=== PATIENT | male | born 1945 | race Caucasian/White ===

== ENCOUNTER 2017-10-09 20:34 | Emergency (ER) | payer MEDICARE ==
--- OUTSIDE RECORDS SUMMARY | 2017-10-09 21:02 | XMS REPORT ---
:1945 External Reference #:[id number] Author Organization [facility] Address [address] [place] [address] Phone [phone] Care Team Providers Name Role Phone HCP/LW on file Primary Care Physician Unavailable Payers Type Date Identification Numbers Payment Provider Subscriber Medicare Primary Effective: Policy Number: [facility] Nancy Heathhamilton 02/13/2011 [id number] Services PayID: [id number] [address] [place] [address] Medigap Part B Effective: Policy Number: Aarp/Meherrin Nancy Sam Adriane 09/15/2012 [id number] Healthcare PayID: [id number] [address] [place] [address] Problems Date Description Provider Status Onset: 01/01/2016 H/O: pulmonary embolus Bertram Chinchilla D.O. Active Onset: 01/01/2016 Chronic diastolic heart failure Bertram Chinchilla D.O. Active Onset: 01/01/2016 Essential hypertension Bertram Chinchilla D.O. Active Onset: 01/01/2016 Iron deficiency anemia Bertram Chinchilla D.O. Active Onset: 01/01/2016 Inguinal hernia without obstruction AND Bertram Chinchilla D.O. Active without gangrene Onset: 06/03/2016 Anemia due to chronic blood loss Bertram Chinchilla D.O. Active Onset: 04/03/2017 Lymphedema Bertram Chinchilla D.O. 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 ETOH Use Rarely consumes alcohol Recreational Drug Use Denies Drug Use Daily Caffeine Consumes on average 2 cups of coffee per day Exercise Type/Frequency Exercises sporadically Seat Belt/Car Seat Seat Belt Use - Yes Currently Active Patient is currently sexually active Age [address] [place] 20 Years Old Allergies, Adverse Reactions, Alerts Date Description Reaction Status Severity Comments 01/01/2016 NKDA active Medications Medication Date Status Form Strength Qnty SIG Indications Ordering Provider Ondansetron Active Tablets 4mg 3tabs 1-2 by R11.2 Sopchak, 018 Dispers mouth Bertram, three D.O. times a day as needed for nausea Ondansetron Hx Tablets 4mg 30tabs 1 by mouth R11.2 Sopchak, HCL 018 - three Bertram, times a D.O. 018 day as needed for nausea Home Active 1units For I89.0 Sopchak, Compression 017 Chronic Bertram, Pump lymphedema D.O. . Use as directed nightly and when resting. Oxybutynin Active Tablets ER 10mg 30tabs 1 tablet Husseini, Chloride ER 017 24HR by mouth MD Armando daily Eucerin Active Cream 1362gm apply to I89.0 Sopchak, 017 body twice Bertram, a day D.O. Cartia XT Active Caps ER 240mg one po Unknown 017 24HR daily Furosemide Active Tablets 20mg 60tabs take one I10 Sopchak, 016 tablet by Bertram, mouth D.O. twice a day I89.0 Warfarin 06/17/2016 Active Tablets 1mg 400tabs Take 4+1/2 Z86.711 Sopchak, Sodium Tablets By Bertram, Mouth D.O. Every Day Or as Directed Warfarin 06/13/2016 Active Tablets 5mg 60tabs as Unknown Sodium directed, po daily Digoxin 06/13/2016 Active Tablets 125mc 90tabs Take One Sopchak, g Tablet By Bertram, Mouth D.O. Every Day Ferrous 12/25/2015 Active Tablets 325(6 90tabs Take One D50.9 Sopchak, Sulfate 5Fe) Tablet By Bertram, mg Mouth D.O. Every Morning With Oj Or Vitamin C. On Empty Stomach Metoprolol Active Tablets 50mg 2 by mouth I48.91 Unknown Tartrate twice a day T.E.D. 07/15/2017 - Hx [facility] [place] 3units please fit I89.0 Amor, Anti-Embolism 10/05/2017 to patient Bertram Stockings wear daily D.O. Thigh ok to Length/Large/ remove at Regular night Diltiazem HCL 06/21/2016 - Hx Caps ER 120mg 30caps take 1 I48.91 Silcoff, ER 04/03/2017 24HR capsule by anel Martinez M.DEllie every morning for heart rate control Metoprolol 06/21/2016 - Hx Tablets 50mg 90tabs take 1.5 I48.91 Silcoff, Tartrate 07/22/2016 tablets by anel Martinez M.DEllie twice a day for heart rate control and high blood pressure Diltiazem HCL 06/13/2016 - Hx Tablets 60mg one tab po I48.91 Unknown 06/21/2016 twice daily for heart rate control Metoprolol 06/13/2016 - Hx Tablets 50mg take 1 I48.91 Unknown Tartrate 06/21/2016 tablet twice a day for heart rate control and high blood pressure Cipro 06/03/2016 - Hx Tablets 500mg 14tabs 1 tab by T83.51xA [facility], 06/10/2016 mouth Bertram, twice a D.O. day Xarelto 04/01/2016 - Hx Tablets 20mg 90tabs 1 by mouth Z86.711 [facility], 06/13/2016 every day Keith Burden. Eliquis 03/26/2016 - Hx Tablets 5mg 180tabs 1 po [facility] Z86.711 [facility] a [facility]. Abiodun Burden.Brando. Pradaxa 03/23/2016 - Hx Capsules 150[facility]caps [facility] by Bertram, mouth 2 D.O. times per day for blood clot in a blood vessel of the lung Furosemide 12/25/2015 - Hx Tablets 40mg 30tabs 1 by mouth [facility]2016 daily Bertram, D.O. Losartan 12/25/2015 - Hx Tablets 25mg 90tabs 1 by mouth I10 Sopchak, Potassium 06/13/2016 daily Shea Burden Metoprolol 12/25/2015 - Hx Tablets ER 25mg 30tabs 1 by mouth I10 Sopmarycruzk, Succinate ER 06/13/2016 24HR daily Keith Burden. Xarelto 12/25/2015 - Hx Tablets 20mg 30tabs 1 by mouth Z86.711 Sopchak, 03/26/2016 daily Shea Burden Immunizations CPT Code Status Date Vaccine Lot # [id number] Given 07/15/2017 Influenza Virus Vaccine, Quadrivalent, Split, [id number] Preservative Free 50636 Given 07/22/2016 Influenza Virus Vaccine, Quadrivalent, Split, [id number] Preservative Free Vital Signs Date Vital Result Comment 10/06/2017 BP Systolic 156 mmHg BP Diastolic 60 mmHg Body Temperature 98.2 F Weight 220.00 lb w/shoes 07/15/2017 BP Systolic 140 mmHg BP Diastolic 60 mmHg Weight 223.00 lb w/shoes 04/11/2017 BP Systolic 136 mmHg BP Diastolic 64 mmHg Weight 223.00 lb 04/03/2017 BP Systolic 138 mmHg BP Diastolic 82 mmHg Height 66.5 inches 5'6.50" with sneakers Weight 226.00 lb with sneakers BMI (Body Mass Index) 35.9 kg/m2 07/22/2016 BP Systolic 108 mmHg BP Diastolic 70 mmHg Weight 205.00 lb 06/21/2016 BP Systolic 130 mmHg BP Diastolic 82 mmHg Heart Rate 112 /min irreg irreg (range 106-112, checked 3x) Respiratory Rate 14 /min not laboured Height 67 inches 5'7" with sneakers Weight 224.00 lb with sneakers BMI (Body Mass Index) 35.1 kg/m2 06/03/2016 BP Systolic 100 mmHg BP Diastolic 65 mmHg Body Temperature 98.8 F Weight 221.00 lb 03/22/2016 BP Systolic 144 mmHg BP Diastolic 80 mmHg Weight 216.00 lb 01/01/2016 BP Systolic 140 mmHg BP Diastolic 70 mmHg Height 66 inches 5'6" Weight 210.00 lb BMI (Body Mass Index) 33.9 kg/m2 Results Test Date Test Result H/L Range Note Inr/Protime 10/02/2017 Inr 2.50 High 0.77-1.02 Inr/Protime 09/01/2017 Inr 2.33 High 0.77-1.02 1 Istat BUN/Crea/Egfr/V Mainct 08/13/2017 Poc Bun Mainct 18 mg/dL 9- Poc Crea Mainct 0.6 mg/dL 0.6-0.9 GFR Non- MCT 132.8 >60 GFR Mainct 170.8 >60 2 Laboratory test finding 08/13/2017 Blood Urea Nitrogen BUN <pending> Creatinine <pending> Inr/Protime 08/04/2017 Inr 2.82 High 0.89-1.11 Inr/Protime 07/25/2017 Inr 3.15 High 0.89-1.11 Inr/Protime 06/26/2017 Inr 2.40 High 0.89-1.11 Inr/Protime 06/12/2017 Inr 1.94 High 0.89-1.11 Inr/Protime 05/27/2017 Inr 2.33 High 0.89-1.11 Inr/Protime 05/20/2017 Inr 3.12 High 0.89-1.11 Alkaline Phos Isoenzymes 05/20/2017 Alkaline Phosphatase 346 U/L 45 - 115 Alp Liver 1% 85.2 % 27.8-76.3 Alp Liver 1 294.8 IU/L 16.2-70.2 Alp Liver 2% 9.2 % 0.0-8.0 Alp Liver 2 31.8 IU/L 0.0-5.8 Alp Bone % 3.9 % 19.1-67.7 Alp Bone 13.5 IU/L 12.1-42.7 Alp Intestine % 1.7 % 0.0-20.6 Alp Intestine 5.9 IU/L 0.0-11.0 Alp Placental NotPresent 3 Comp Metabolic Panel 05/20/2017 Sodium 140 mmol/L 133-145 Potassium 4.3 mmol/L 3.5-5.0 Chloride 106 mmol/L 101-111 Co2 Carbon Dioxide 26 mmol/L 22-32 Anion Gap 8 mmol/L 2-11 Glucose 136 mg/dL High 70-100 Blood Urea Nitrogen 19 mg/dL 6-24 Creatinine 0.69 mg/dL 0.67-1.17 BUN/Creatinine Ratio 27.5 High 8-20 Calcium 9.0 mg/dL 8.6-10.3 Total Protein 6.9 g/dL 6.4-8.9 Albumin 3.9 g/dL 3.2-5.2 Globulin 3.0 g/dL 2-4 Albumin/Globulin Ratio 1.3 1-3 Total Bilirubin 0.60 mg/dL 0.2-1.0 Alkaline Phosphatase 329 U/L High 34-104 Alt 40 U/L 7-52 Ast 37 U/L 13-39 Egfr Non- 113.0 >60 Egfr 145.4 >60 4 Inr/Protime 04/21/2017 Inr 2.84 High 0.89-1.11 Basic Metabolic Panel 04/21/2017 Sodium 139 mmol/L 133-145 Potassium 4.2 mmol/L 3.5-5.0 Chloride 104 mmol/L 101-111 Co2 Carbon Dioxide 27 mmol/L 22-32 Anion Gap 8 mmol/L 2-11 Glucose 115 mg/dL High 70-100 Blood Urea Nitrogen 17 mg/dL 6-24 Creatinine 0.63 mg/dL Low 0.67-1.17 BUN/Creatinine Ratio 27.0 High 8-20 Calcium 9.1 mg/dL 8.6-10.3 Egfr Non- 125.5 >60 Egfr 161.5 >60 5 CBC Auto Diff 04/03/2017 White Blood Count 9.5 10^3/uL 3.5-10.8 Red Blood Count 5.49 10^6/uL High 4.0-5.4 Hemoglobin 12.7 g/dL Low 14.0-18.0 Hematocrit 40 % Low 42-52 Mean Corpuscular Volume 73 fL Low 80-94 6 Mean Corpuscular Hemoglobin 23 pg Low 27-31 Mean Corpuscular HGB Conc 32 g/dL 31-36 Red Cell Distribution Width 19 % High 10.5-15 Platelet Count 192 10^3/uL 150-450 Mean Platelet Volume 12 um3 High 7.4-10.4 Abs Neutrophils 7.5 10^3/uL 1.5-7.7 Abs Lymphocytes 0.9 10^3/uL Low 1.0-4.8 Abs Monocytes 0.8 10^3/uL 0-0.8 Abs Eosinophils 0.2 10^3/uL 0-0.6 Abs Basophils 0.1 10^3/uL 0-0.2 Abs Nucleated RBC 0 10^3/uL Granulocyte % 78.7 % 38-83 Lymphocyte % 9.6 % Low 25-47 Monocyte % 8.9 % 1-9 Eosinophil % 1.7 % 0-6 Basophil % 1.1 % 0-2 Nucleated Red Blood Cells % 0 Comp Metabolic Panel 04/03/2017 Sodium 141 mmol/L 133-145 Potassium 4.1 mmol/L 3.5-5.0 Chloride 106 mmol/L 101-111 Co2 Carbon Dioxide 25 mmol/L 22-32 Anion Gap 10 mmol/L 2-11 Glucose 129 mg/dL High 70-100 Blood Urea Nitrogen 16 mg/dL 6-24 Creatinine 0.65 mg/dL Low 0.67-1.17 BUN/Creatinine Ratio 24.6 High 8-20 Calcium 8.9 mg/dL 8.6-10.3 Total Protein 7.1 g/dL 6.4-8.9 Albumin 3.8 g/dL 3.2-5.2 Globulin 3.3 g/dL 2-4 Albumin/Globulin Ratio 1.2 1-3 Total Bilirubin 0.70 mg/dL 0.2-1.0 Alkaline Phosphatase 306 U/L High 34-104 Alt 36 U/L 7-52 Ast 29 U/L 13-39 Egfr Non- 121.1 >60 Egfr 155.7 >60 7 Laboratory test finding 04/03/2017 Ferritin 110.4 ng/mL 24-336 TSH (Thyroid Stim Horm) 3.46 mcIU/mL 0.34-5.60 Inr/Protime 03/24/2017 Inr 2.85 High 0.89-1.11 Inr/Protime 02/24/2017 Inr 2.07 High 0.89-1.11 Inr/Protime 01/27/2017 Inr 2.25 High 0.89-1.11 Inr/Protime 01/06/2017 Inr 2.07 High 0.89-1.11 Inr/Protime 12/30/2016 Inr 1.44 High 0.89-1.11 Inr/Protime 12/02/2016 Inr 2.48 High 0.89-1.11 Inr/Protime 11/25/2016 Inr 2.02 High 0.89-1.11 Inr/Protime 11/18/2016 Inr 1.85 High 0.89-1.11 Inr/Protime 11/11/2016 Inr 2.10 High 0.89-1.11 Inr/Protime 11/01/2016 Inr 2.20 High 0.89-1.11 Inr/Protime 10/21/2016 Inr 2.19 High 0.89-1.11 Inr/Protime 10/14/2016 Inr 2.06 High 0.89-1.11 Inr/Protime 10/07/2016 Inr 1.58 High 0.89-1.11 Laboratory test finding 09/25/2016 Inr/Protime 1.89 High 0.89-1.11 8, 9 Inr/Protime 09/11/2016 Inr 2.00 High 0.89-1.11 Inr/Protime 08/12/2016 Inr 2.07 High 0.89-1.11 Laboratory test finding 07/22/2016 Ferritin 92.4 ng/mL 24-336 10 Iron & Iron Binding 07/22/2016 Iron 42 g/dL Low 50-212 10 Capacity Unsaturated Iron Binding 308 g/dL 10 Total Iron Binding Capacity 350 g/dL 250-450 10 % Iron Saturation 12 % Low 15-55 10 CBC Auto Diff 07/22/2016 White Blood Count 8.1 10^3/uL 3.5-10.8 10 Red Blood Count 5.50 10^6/uL High 4.0-5.4 10 Hemoglobin 12.3 g/dL Low 14.0-18.0 10 Hematocrit 39 % Low 42-52 10 Mean Corpuscular Volume 71 fL Low 80-94 10, 11 Mean Corpuscular Hemoglobin 22 pg Low 27-31 10 Mean Corpuscular HGB Conc 32 g/dL 31-36 10 Red Cell Distribution Width 19 % High 10.5-15 10 Platelet Count 254 10^3/uL 150-450 10 Mean Platelet Volume 11 um3 High 7.4-10.4 10 Abs Neutrophils 5.8 10^3/uL 1.5-7.7 10 Abs Lymphocytes 1.0 10^3/uL 1.0-4.8 10 Abs Monocytes 0.8 10^3/uL 0-0.8 10 Abs Eosinophils 0.4 10^3/uL 0-0.6 10 Abs Basophils 0.1 10^3/uL 0-0.2 10 Abs Nucleated RBC 0 10^3/uL 10 Granulocyte % 71.6 % 38-83 10 Lymphocyte % 12.0 % Low 25-47 10 Monocyte % 10.4 % High 1-9 10 Eosinophil % 4.6 % 0-6 10 Basophil % 1.4 % 0-2 10 Nucleated Red Blood Cells % 0 10 Inr/Protime 07/22/2016 Inr 2.74 High 0.89-1.11 10 Protime W/ Inr(Add 07/17/2016 #International 2.7 V58.61) Normalized Protime W/ Inr(Add 07/03/2016 #International 4.2 V58.61) Normalized Protime W/ Inr(Add 07/03/2016 #International 4.4 V58.61) Normalized Protime W/ Inr(Add 06/24/2016 #International 3.9 V58.61) Normalized Inr/Protime 06/17/2016 Inr 1.83 High 0.89-1.11 CBC Auto Diff 06/05/2016 White Blood Count 11.7 10^3/uL High 3.5-10.8 Red Blood Count 4.92 10^6/uL 4.0-5.4 Hemoglobin 11.0 g/dL Low 14.0-18.0 Hematocrit 34 % Low 42-52 Mean Corpuscular Volume 70 fL Low 80-94 12 Mean Corpuscular Hemoglobin 22 pg Low 27-31 Mean Corpuscular HGB Conc 32 g/dL 31-36 Red Cell Distribution Width 17 % High 10.5-15 Platelet Count 449 10^3/uL 150-450 Mean Platelet Volume 10 um3 7.4-10.4 Abs Neutrophils 9.1 10^3/uL High 1.5-7.7 Abs Lymphocytes 1.3 10^3/uL 1.0-4.8 Abs Monocytes 1.1 10^3/uL High 0-0.8 Abs Eosinophils 0 10^3/uL 0-0.6 Abs Basophils 0.2 10^3/uL 0-0.2 Abs Nucleated RBC 0.04 10^3/uL Granulocyte % 77.9 % 38-83 Lymphocyte % 11.0 % Low 25-47 Monocyte % 9.5 % High 1-9 Eosinophil % 0.1 % 0-6 Basophil % 1.5 % 0-2 Nucleated Red Blood Cells % 0.3 Inr/Protime 06/05/2016 Inr 2.24 High 0.89-1.11 Laboratory test finding 06/05/2016 Partial Thrombo Time 31.3 seconds 26.0 -36.3 PTT B-Type Natriuretic Peptide BNP 382 pg/mL High 13 Lactic Acid 2.3 mmol/L High 0.5-2.0 14 Comp Metabolic Panel 06/05/2016 Sodium 130 mmol/L Low 133-145 Potassium 4.4 mmol/L 3.5-5.0 Chloride 101 mmol/L 101-111 Co2 Carbon Dioxide 16 mmol/L Low 22-32 Anion Gap 13 mmol/L High 2-11 Glucose 125 mg/dL High 70-100 Blood Urea Nitrogen 56 mg/dL High 6-24 Creatinine 1.61 mg/dL High 0.67-1.17 BUN/Creatinine Ratio 34.8 High 8-20 Calcium 8.9 mg/dL 8.6-10.3 Total Protein 7.0 g/dL 6.4-8.9 Albumin 3.6 g/dL 3.2-5.2 Globulin 3.4 g/dL 2-4 Albumin/Globulin Ratio 1.1 1-3 Total Bilirubin 0.70 mg/dL 0.2-1.0 Alkaline Phosphatase 193 U/L High 34-104 Alt 159 U/L High 7-52 Ast 167 U/L High 13-39 Egfr Non- 42.6 >60 Egfr 54.8 >60 15 Laboratory test finding 06/05/2016 Magnesium 2.1 mg/dL 1.9-2.7 Troponin-I (TnI) 0.02 ng/mL <0.03 16 TSH (Thyroid Stim Horm) 5.19 mcIU/mL 0.34-5.60 Urinalysis Profile 06/05/2016 Urine Color [place] Urine Appearance Cloudy Urine Specific [place] 1.019 1.010-1.030 Urine pH 5.0 5-9 Urine Urobilinogen Negative Negative Urine Ketones Negative Negative Urine Protein 2+(100 mg/dL) Negative Urine Leukocytes Trace Negative Urine Blood 2+ Negative Urine Nitrite Negative Negative Urine Bilirubin Negative Negative Urine Glucose Negative Negative Urine White Blood Cell 3+(>20/hpf) Absent Urine Red Blood Cell 3+(>10/hpf) Absent Urine Bacteria 1+ Absent Urine Squamous Epithelial Cell Present Absent Urine Hyaline Casts Present Absent Laboratory test 06/05/2016 Urine Culture And SEE RESULT 17 finding Sensitivities BELOW Laboratory test 06/04/2016 B-Type Natriuretic 106 pg/mL High 18 finding Peptide BNP Comp Metabolic Panel 06/04/2016 Sodium 134 mmol/L 133-145 Potassium 4.5 mmol/L 3.5-5.0 Chloride 101 mmol/L 101-111 Co2 Carbon Dioxide 22 mmol/L 22-32 Anion Gap 11 mmol/L 2-11 Glucose 111 mg/dL High 70-100 Blood Urea Nitrogen 44 mg/dL High 6-24 Creatinine 1.20 mg/dL High 0.67-1.17 BUN/Creatinine Ratio 36.7 High 8-20 Calcium 9.1 mg/dL 8.6-10.3 Total Protein 6.4 g/dL 6.4-8.9 Albumin 3.5 g/dL 3.2-5.2 Globulin 2.9 g/dL 2-4 Albumin/Globulin Ratio 1.2 1-3 Total Bilirubin 0.60 mg/dL 0.2-1.0 Alkaline Phosphatase 192 U/L High 34-104 Alt 43 U/L 7-52 Ast 33 U/L 13-39 Egfr Non- 59.9 >60 Egfr 77.0 >60 19 CBC Auto Diff 06/04/2016 White Blood Count 10.5 10^3/uL 3.5-10.8 Red Blood Count 4.68 10^6/uL 4.0-5.4 Hemoglobin 10.5 g/dL Low 14.0-18.0 Hematocrit 33 % Low 42-52 Mean Corpuscular Volume 71 fL Low 80-94 20 Mean Corpuscular Hemoglobin 23 pg Low 27-31 Mean Corpuscular HGB Conc 32 g/dL 31-36 Red Cell Distribution Width 17 % High 10.5-15 Platelet Count 413 10^3/uL 150-450 Mean Platelet Volume 10 um3 7.4-10.4 Abs Neutrophils 7.7 10^3/uL 1.5-7.7 Abs Lymphocytes 1.5 10^3/uL 1.0-4.8 Abs Monocytes 1.2 10^3/uL High 0-0.8 Abs Eosinophils 0.1 10^3/uL 0-0.6 Abs Basophils 0.1 10^3/uL 0-0.2 Abs Nucleated RBC 0.02 10^3/uL Granulocyte % 73.0 % 38-83 Lymphocyte % 14.0 % Low 25-47 Monocyte % 11.3 % High 1-9 Eosinophil % 0.6 % 0-6 Basophil % 1.1 % 0-2 Nucleated Red Blood Cells % 0.1 Culture Urine Inhouse 06/03/2016 Colonies 06/22 21 Urine Micro Inhouse 06/03/2016 Ua WBC 8-10 21 Ua RBC 15-20 21 Ua Casts - 21 Ua Epi 0-2 21 Ua Other sm amt sediment 21 Ua Glucose - 21 Ua Bilirubin + 21 Ua Ketones - 21 Ua Specific [place] 1.015 21 Ua Blood 3+ 21 Ua PH 6.0 21 Ua Protein 1+ 21 Ua Urobilinogen - 21 Ua Nitrite + 21 Ua Leukocytes 2+ 21 Laboratory test finding 04/22/2016 Ferritin 138.0 ng/mL 24-336 Iron (Fe) 29 g/dL Low 50-212 CBC Auto Diff 04/22/2016 White Blood Count 7.4 10^3/uL 3.5-10.8 Red Blood Count 4.89 10^6/uL 4.0-5.4 Hemoglobin 10.9 g/dL Low 14.0-18.0 Hematocrit 35 % Low 42-52 Mean Corpuscular Volume 71 fL Low 80-94 22 Mean Corpuscular Hemoglobin 22 pg Low 27-31 Mean Corpuscular HGB Conc 31 g/dL 31-36 Red Cell Distribution Width 17 % High 10.5-15 Platelet Count 196 10^3/uL 150-450 Mean Platelet Volume 11 um3 High 7.4-10.4 Abs Neutrophils 5.5 10^3/uL 1.5-7.7 Abs Lymphocytes 1.0 10^3/uL 1.0-4.8 Abs Monocytes 0.6 10^3/uL 0-0.8 Abs Eosinophils 0.2 10^3/uL 0-0.6 Abs Basophils 0.1 10^3/uL 0-0.2 Abs Nucleated RBC 0 10^3/uL Granulocyte % 74.3 % 38-83 Lymphocyte % 14.1 % Low 25-47 Monocyte % 8.4 % 1-9 Eosinophil % 2.3 % 0-6 Basophil % 0.9 % 0-2 Nucleated Red Blood Cells % 0 Iron & Iron Binding Capacity 03/11/2016 Iron 39 g/dL Low 50-212 Unsaturated Iron Binding 289 g/dL Total Iron Binding Capacity 328 g/dL 250-450 % Iron Saturation 12 % Low 15-55 Laboratory test finding 03/11/2016 Ferritin 141.8 ng/mL 24-336 CBC Auto Diff 03/11/2016 White Blood Count 7.9 10^3/uL 3.5-10.8 Red Blood Count 4.99 10^6/uL 4.0-5.4 Hemoglobin 11.4 g/dL Low 14.0-18.0 Hematocrit 36 % Low 42-52 Mean Corpuscular Volume 72 fL Low 80-94 23 Mean Corpuscular Hemoglobin 23 pg Low 27-31 Mean Corpuscular HGB Conc 32 g/dL 31-36 Red Cell Distribution Width 17 % High 10.5-15 Platelet Count 211 10^3/uL 150-450 Mean Platelet Volume 11 um3 High 7.4-10.4 Abs Neutrophils 5.5 10^3/uL 1.5-7.7 Abs Lymphocytes 1.4 10^3/uL 1.0-4.8 Abs Monocytes 0.7 10^3/uL 0-0.8 Abs Eosinophils 0.3 10^3/uL 0-0.6 Abs Basophils 0.1 10^3/uL 0-0.2 Abs Nucleated RBC 0.01 10^3/uL Granulocyte % 69.2 % 38-83 Lymphocyte % 17.4 % Low 25-47 Monocyte % 9.5 % High 1-9 Eosinophil % 3.2 % 0-6 Basophil % 0.7 % 0-2 Nucleated Red Blood Cells % 0.1 Laboratory test finding 02/11/2016 Urine Culture And SEE RESULT BELOW 24 Sensitivities Urinalysis Profile 02/11/2016 Urine Color Yellow Urine Appearance Clear Urine Specific [place] 1.020 1.010-1.030 Urine pH 5.0 5-9 Urine Urobilinogen Negative Negative Urine Ketones Negative Negative Urine Protein 1+(30 mg/dL) Negative Urine Leukocytes Trace Negative Urine Blood 2+ Negative * * Negative 25 Urine Nitrite Negative Negative Urine Bilirubin Negative Negative Urine Glucose Negative Negative Urine White Blood Cell 2+(11-20/hpf) Absent Urine Red Blood Cell 3+(>10/hpf) Absent Urine Bacteria Absent Absent CBC Auto Diff 01/01/2016 White Blood Count 9.6 10^3/uL 3.5-10.8 Red Blood Count 5.51 10^6/uL High 4.0-5.4 Hemoglobin 12.9 g/dL Low 14.0-18.0 Hematocrit 41 % Low 42-52 Mean Corpuscular Volume 74 fL Low 80-94 26 Mean Corpuscular Hemoglobin 23 pg Low 27-31 Mean Corpuscular HGB Conc 32 g/dL 31-36 Red Cell Distribution Width 16 % High 10.5-15 Platelet Count 211 10^3/uL 150-450 Mean Platelet Volume 11 um3 High 7.4-10.4 Abs Neutrophils 7.4 10^3/uL 1.5-7.7 Abs Lymphocytes 1.3 10^3/uL 1.0-4.8 Abs Monocytes 0.7 10^3/uL 0-0.8 Abs Eosinophils 0.2 10^3/uL 0-0.6 Abs Basophils 0.1 10^3/uL 0-0.2 Abs Nucleated RBC 0 10^3/uL Granulocyte % 76.6 % 38-83 Lymphocyte % 13.2 % Low 25-47 Monocyte % 7.4 % 1-9 Eosinophil % 2.0 % 0-6 Basophil % 0.8 % 0-2 Nucleated Red Blood Cells % 0.1 Iron & Iron Binding Capacity 01/01/2016 Iron 54 g/dL 50-212 Unsaturated Iron Binding 303 g/dL Total Iron Binding Capacity 357 g/dL 250-450 % Iron Saturation 15 % 15-55 Basic Metabolic Panel 01/01/2016 Sodium 137 mmol/L 133-145 Potassium 4.4 mmol/L 3.5-5.0 Chloride 100 mmol/L Low 101-111 Co2 Carbon Dioxide 28 mmol/L 22-32 Anion Gap 9 mmol/L 2-11 Glucose 75 mg/dL 70-100 Blood Urea Nitrogen 13 mg/dL 6-24 Creatinine 0.61 mg/dL Low 0.67-1.17 BUN/Creatinine Ratio 21.3 High 8-20 Calcium 9.3 mg/dL 8.6-10.3 Egfr Non- 131.1 >60 Egfr 168.6 >60 27 1 Please note the change in INR reference range effective 17. 2 Because ethnic data is not always readily available, this report includes an eGFR for both -Americans and non- Americans. The National Kidney Disease Education Program (NKDEP) does not endorse the use of the MDRD equation for patients that are not between the ages of 18 and 70, are , have extremes of body size, muscle mass, or nutritional status, or are non- or non-. According to the National Kidney Foundation, irrespective of diagnosis, the stage of the disease is based on the level of kidney function: Stage Description GFR(mL/min/1.73 m(2)) 1 Kidney damage with normal or decreased GFR 90 2 Kidney damage with mild decrease in GFR 60-89 3 Moderate decrease in GFR 30-59 4 Severe decrease in GFR 15-29 5 Kidney failure <15 (or dialysis) 3 REFERENCE VALUE Not present Test Performed by: [address] [address] 4 Because ethnic data is not always readily available, this report includes an eGFR for both -Americans and non- Americans. The National Kidney Disease Education Program (NKDEP) does not endorse the use of the MDRD equation for patients that are not between the ages of 18 and 70, are , have extremes of body size, muscle mass, or nutritional status, or are non- or non-. According to the National Kidney Foundation, irrespective of diagnosis, the stage of the disease is based on the level of kidney function: Stage Description GFR(mL/min/1.73 m(2)) 1 Kidney damage with normal or decreased GFR 90 2 Kidney damage with mild decrease in GFR 60-89 3 Moderate decrease in GFR 30-59 4 Severe decrease in GFR 15-29 5 Kidney failure <15 (or dialysis) 5 Because ethnic data is not always readily available, this report includes an eGFR for both -Americans and non- Americans. The National Kidney Disease Education Program (NKDEP) does not endorse the use of the MDRD equation for patients that are not between the ages of 18 and 70, are , have extremes of body size, muscle mass, or nutritional status, or are non- or non-. According to the National Kidney Foundation, irrespective of diagnosis, the stage of the disease is based on the level of kidney function: Stage Description GFR(mL/min/1.73 m(2)) 1 Kidney damage with normal or decreased GFR 90 2 Kidney damage with mild decrease in GFR 60-89 3 Moderate decrease in GFR 30-59 4 Severe decrease in GFR 15-29 5 Kidney failure <15 (or dialysis) 6 Consistent with previous results on 07/22/16. 7 Because ethnic data is not always readily available, this report includes an eGFR for both -Americans and non- Americans. The National Kidney Disease Education Program (NKDEP) does not endorse the use of the MDRD equation for patients that are not between the ages of 18 and 70, are , have extremes of body size, muscle mass, or nutritional status, or are non- or non-. According to the [employer], irrespective of diagnosis, the stage of the disease is based on the level of kidney function: Stage Description GFR(mL/min/1.73 m(2)) 1 Kidney damage with normal or decreased GFR 90 2 Kidney damage with mild decrease in GFR 60-89 3 Moderate decrease in GFR 30-59 4 Severe decrease in GFR 15-29 5 Kidney failure <15 (or dialysis) 8 CALL RESULTS TO [id number] 9 CALL RESULTS TO [id number] 10 INR taken care of in separate triage 11 Consistent with previous results on 06/06/16. 12 Consistent with previous results on 06/04/16. 13 >100 to <200 pg/mL: likely compensated congestive heart failure (CHF) 200 to 400 pg/mL: likely moderate CHF >400 pg/mL: likely moderate to severe CHF 14 Critical Result LACT:2.3 Called to [id number] at: 21:42:42 by:[id number] Read back by:[facility] Severe Sepsis and Septic Shock Management Bundle Measure requires all lactic acids initially measuring >2.0 mmol/L be repeated. 15 Because ethnic data is not always readily available, this report includes an eGFR for both -Americans and non- Americans. The National Kidney Disease Education Program (NKDEP) does not endorse the use of the MDRD equation for patients that are not between the ages of 18 and 70, are , have extremes of body size, muscle mass, or nutritional status, or are non- or non-. According to the National Kidney Foundation, irrespective of diagnosis, the stage of the disease is based on the level of kidney function: Stage Description GFR(mL/min/1.73 m(2)) 1 Kidney damage with normal or decreased GFR 90 2 Kidney damage with mild decrease in GFR 60-89 3 Moderate decrease in GFR 30-59 4 Severe decrease in GFR 15-29 5 Kidney failure <15 (or dialysis) 16 Reference Range and Interpretation: TnI (ng/mL) Interpretation Less Than 0.03 ng/mL Not supportive of diagnosis of SC 0.03 - 0.50 ng/mL Indeterminate: suggest serial studies if clinically indicated. Greater than 0.5 ng/mL Consistent with diagnosis of SC 17 SEE RESULT BELOW Name: NANCY FORREST : [address]: Delfina Briscoe MD Acct: [id number] Unit: [id number] AGE: 71 Location: ICU [id number] Re06/06/16 Dis: 06/06/16 SEX: M Status: DIS IN SPEC: [id number] NARCISA: 06/06/[address]: Ru Colby MD REQ: [id number] RECD: 06/06/16 STATUS: COMP PIOTR : Bertram Chinchilla DO _ SOURCE: URINE SPDESC: ORDERED: Urine Culture Procedure Result Reported Site Urine Culture Final 06/07/16- 09 ML Mixed nichelle; possible contamination. Suggest resubmission. * ML - MAIN LAB (PSC1) . END OF REPORT * ML=Testing performed at Main Lab DEPARTMENT OF PATHOLOGY, [address] [place] [address] Luther Yeh M.D. Director [facility] # [id number] 18 >100 to <200 pg/mL: likely compensated congestive heart failure (CHF) 200 to 400 pg/mL: likely moderate CHF >400 pg/mL: likely moderate to severe CHF 19 Because ethnic data is not always readily available, this report includes an eGFR for both -Americans and non- Americans. The National Kidney Disease Education Program (NKDEP) does not endorse the use of the MDRD equation for patients that are not between the ages of 18 and 70, are , have extremes of body size, muscle mass, or nutritional status, or are non- or non-. According to the National Kidney Foundation, irrespective of diagnosis, the stage of the disease is based on the level of kidney function: Stage Description GFR(mL/min/1.73 m(2)) 1 Kidney damage with normal or decreased GFR 90 2 Kidney damage with mild decrease in GFR 60-89 3 Moderate decrease in GFR 30-59 4 Severe decrease in GFR 15-29 5 Kidney failure <15 (or dialysis) 20 Consistent with previous results on 04/22/16. 21 void, clear, dark yellow 22 Consistent with previous results on 03/11/16. 23 Consistent with previous results on 01/01/16. 24 SEE RESULT BELOW Name: NANCY FORREST : [address]: Julia Spence DO Acct: [id number] Unit: [id number] AGE: 70 Location: ED Re02/11/16 SEX: M Status: DEP ER SPEC: [id number] NARCISA: 02/11/16-[address] [facility] [address]: Julia Spence DO REQ: [id number] RECD: 02/11/16 STATUS: ILANA MUNSON DR: Bertram Chinchilla DO _ SOURCE: URINE SPDESC: ORDERED: Urine Culture Procedure Result Reported Site Urine Culture Final 02/12/16- 1200 ML No Growth (<1,000 CFU/mL) * ML - MAIN LAB (PSC1) . END OF REPORT * ML=Testing performed at Main Lab DEPARTMENT OF PATHOLOGY, [address] [place] [address] Luther Yeh M.D. Director [facility] # [id number] 25 *Ascorbic acid is present which may interfere with detection of blood. 26 Consistent with previous results on 09/03/15. 27 Because ethnic data is not always readily available, this report includes an eGFR for both -Americans and non- Americans. The National Kidney Disease Education Program (NKDEP) does not endorse the use of the MDRD equation for patients that are not between the ages of 18 and 70, are , have extremes of body size, muscle mass, or nutritional status, or are non- or non-. According to the National Kidney Foundation, irrespective of diagnosis, the stage of the disease is based on the level of kidney function: Stage Description GFR(mL/min/1.73 m(2)) 1 Kidney damage with normal or decreased GFR 90 2 Kidney damage with mild decrease in GFR 60-89 3 Moderate decrease in GFR 30-59 4 Severe decrease in GFR 15-29 5 Kidney failure <15 (or dialysis) Procedures Date CPT Code Description Status 10/02/2017 06661 Anticoagulant MGMT For Patient Taking Warfarin, Inc Completed Review & Intr 03/22/2016 37039 Electrocardiogram Complete Completed Encounters Type Date Location Provider CPT E/M Dx Office Visit 07/15/2017 4:30p Main Office Bertram Chinchilla D.O. 49327 I89.0 K40.90 Z86.711 D50.9 Z23 Z79.01 Office Visit 04/11/2017 11:00a Main Office Bertram Chinchilla D.O. 86325 D50.9 Z86.711 I89.0 K40.90 Office Visit 04/03/2017 9:15a Main Office Bertram Chinchilla D.O. 62106 D50.9 Z86.711 I89.0 K40.90 Office Visit 07/22/2016 1:45p Main Office Bertram Chinchilla D.O. 45984 D50.9 I31.3 Z86.711 Z23 Z41.8 Office Visit 06/21/2016 4:45p Main Office Juan Mitchell M.D. 50545 I31.3 J90 D50.9 I48.91 Office Visit 06/03/2016 5:00p Main Office Bertram Chinchilla D.O. 60920 I50.32 I10 T83.51xA D50.0 R33.8 Office Visit 03/22/2016 11:00a Main Office Bertram Chinchilla D.O. 18075 D50.9 I50.32 I10 Z86.711 K40.90 Office Visit 01/01/2016 2:00p Main Office Bertram Chinchilla D.O. 81341 Z86.711 I10 I50.32 D50.9 K40.90 Plan of Care Future Appointment(s):10/16/2017 3:45 pm - Bertram Chinchilla D.O. at Main [id number]/06/2017 - Bertram Chinchilla D.O.R19.7 Diarrhea, unspecifiedFollow up:If not improving in 4 days please contact the office.Z86.409 Personal history of pulmonary uyjypaowY20.0 Lymphedema, not elsewhere sbmdqlznviC11.2 Nausea with vomiting, unspecifiedNew Medication:Ondansetron 4 mgOndansetron HCL 4 mg
[2017-10-09 21:42] LABS: ABS Basophils 0.1 10^3/ul (0-0.2); ABS Eosinophils 0.1 10^3/ul (0-0.6); ABS Lymphocytes 0.7 10^3/ul (1.0-4.8); ABS Monocytes 1.3 10^3/ul (0-0.8); ABS Neutrophils 10.5 10^3/ul (1.5-7.7); ABS Nucleated RBC 0 10^3/ul; Eosinophil % 0.7 % (0-6); Hematocrit 37 % (42-52); Hemoglobin 11.8 g/dl (14.0-18.0); Lymphocyte % 5.8 % (25-47); Mean Corpuscular HGB Conc 32 g/dl (31-36); Mean Corpuscular Hemoglobin 22 pg (27-31); Mean Corpuscular Volume 70 fL (80-94); Mean Platelet Volume 10 um3 (7.4-10.4); Nucleated Red Blood Cells % 0.1; Platelet Count 351 10^3/ul (150-450); Red Blood Count 5.28 10^6/ul (4.0-5.4); Red Cell Distribution Width 19 % (10.5-15); White Blood Count 12.7 10^3/ul (3.5-10.8)
[2017-10-09 21:52] LABS: EGFR Non-African American 61.5 (>60)
[2017-10-10] MEDS: Ondansetron INJ* 2 MG/ML VIAL IV ONE ×2 (00:15→04:21)
[2017-10-10] MEDS ORDERED: Iohexol 300* (CONTRAST) 10 ML SDV IV ONE (01:39)
[2017-10-10 01:43] LABS: Urine Appearance Cloudy; Urine Blood 3+ (Negative); Urine Color Amber; Urine Ketones Trace (Negative); Urine Protein 2+(100 mg/dL) (Negative); Urine Specific Gravity 1.019 (1.010-1.030); Urine Urobilinogen Negative (Negative)
[2017-10-10] MEDS: cefTRIAXone(*) 1 GM in NS 0.9% 50 ML* 50 ML IVPB ONE (04:13)
[2017-10-10] MEDS ORDERED: Ondansetron INJ* 2 MG/ML VIAL ONE (04:19)
[2017-10-10 04:39] LABS: INR 5.03 (0.77-1.02)
[2017-10-10] MEDS ORDERED: Phytonadione INJ (Adult)* 10 MG in NS 0.9% 50 ML* 50 ML IV ONE (05:21)
--- NOTE | 2017-10-10 06:50 | ED ---
Matt Juarez Angela, scribed for Burton Zamora MD on 10/10/17 at 0007 . Abdominal Pain/Male - HPI Summary HPI Summary: This pt is a 72 y/o male presenting to [facility] c/o abd pain x1 week. He states having abd and lower back pain, and now has bloating. Pt additionally reports having had nausea, vomiting, and diarrhea. Pt notes he had diarrhea at the beginning of the onset of his abd pain, but has not had any in the last few days. Last time he had stool output was 1-2 days ago. He states he has not vomited since 2 nights ago. Denies fever, chest pain, SOB. PMHx: CHF, hernia (for years). Pt' saw his PCP (Dr. Chinchilla) 2 days ago and was given Zofran. He has seen a surgeon at [facility] to repair his hernia, but it was not repaired due to pt's heart condition. Pt was told it was too dangerous. - History of Current Complaint Chief Complaint: EDAbdPain Stated Complaint: N/V/D/INSOMNIA Time Seen by Provider: 10/09/17 23:56 Hx Obtained From: Patient Onset/Duration: Lasting Days, Still Present Timing: Lasting Days Severity Currently: None Pain Intensity: 0 Location: Diffuse Radiates: No Aggravating Factor(s): Nothing Alleviating Factor(s): Nothing Associated Signs And Symptoms: Positive: Nausea, Vomiting, Diarrhea. Negative: Fever, Other - chest pain, SOB - Allergies/Home Medications Allergies/Adverse Reactions: Allergies Allergy/AdvReac Type Severity Reaction Status Date / Time No Known Allergies Allergy Verified 10/09/17 23:49 PMH/Surg Hx/FS Hx/Imm Hx Endocrine/Hematology History: Denies: Hx Diabetes, Hx Thyroid Disease Cardiovascular History: Reports: Hx Congestive Heart Failure - recent hospitalization, Hx Hypertension, Hx Valvular Heart Disease - PE, Other Cardiovascular Problems/Disorders - a fib, pericardial effusion 06/06/16 admission Denies: Hx Peripheral Vascular Disease Respiratory History: Reports: Hx Pleural Effusion, Hx Pulmonary Embolism GI History: Reports: Hx Cirrhosis, Other GI Disorders - inguinal hernia History: Reports: Other Problems/Disorders - UTI 05/28/16 Salazar inserted Musculoskeletal History: Denies: Hx Arthritis, Hx Osteoporosis Sensory History: Reports: Hx Contacts or Glasses Opthamlomology History: Reports: Hx Contacts or Glasses Neurological History: Reports: Other Neuro Impairments/Disorders - dizziness 1010 admission Denies: Hx Headaches, Hx Seizures, Hx Transient Ischemic Attacks (TIA) - Cancer History Cancer Type, Location and Year: questionable hepatic mass - Surgical History Surgery Procedure, Year, and Place: Cardiac Ablation 08/17/15. Tonsillectomy - Immunization History Date of Tetanus Vaccine: unk Date of Influenza Vaccine: 2016 Infectious Disease History: No Infectious Disease History: Denies: Traveled Outside the [place] in Last 30 Days - Family History Known Family History: Positive: Cardiac Disease - CHF - Social History Alcohol Use: Rare Substance Use Type: Reports: None Smoking Status (MU): Former Smoker Review of Systems Negative: Fever Negative: Chest Pain Negative: Shortness Of Breath Positive: Abdominal Pain, Vomiting, Diarrhea, Nausea Musculoskeletal: Other - lower back pain All Other Systems Reviewed And Are Negative: Yes Physical Exam - Summary Physical Exam Summary: Appearance: Well appearing, no pain distress Skin: warm, dry. Chronic stasis dermatitis. Head/face: normal Eyes: EOMI, CIERRA ENT: normal Neck: supple, non-tender Respiratory: CTA, breath sounds present Cardiovascular: RRR, pulses symmetrical. 2+ LE edema. Abdomen: non-tender, soft. Central distension. Massive inguinal hernia. Bowel: Increased bowel sounds, high pitched. : Heavy sediment in casts with blood tinged urine in salazar catheter. Musculoskeletal: strength/ROM intact. 2+ LE edema. Neuro: normal, sensory motor intact, A&Ox3 Triage Information Reviewed: Yes Vital Signs On Initial Exam: Initial Vitals Temp Pulse Resp BP Pulse Ox 98.8 F 94 16 172/73 99 10/09/17 20:35 10/09/17 20:35 10/09/17 20:35 10/09/17 20:35 10/09/17 20:35 Vital Signs Reviewed: Yes Diagnostics - Vital Signs Vital Signs Temp Pulse Resp BP Pulse Ox 10/09/17 23:53 73 95 10/09/17 23:51 151/64 10/09/17 22:47 82 16 169/72 97 10/09/17 20:35 98.8 F 94 16 172/73 99 - Laboratory Lab Results: Lab Results 10/09/17 10/09/17 10/09/17 Range/Units 21:25 21:25 21:25 WBC 12.7 H (3.5-10.8) 10^3/ul RBC 5.28 (4.0-5.4) 10^6/ul Hgb 11.8 L (14.0-18.0) g/dl Hct 37 L (42-52) % MCV 70 L (80-94) fL MCH 22 L (27-31) pg MCHC 32 (31-36) g/dl RDW 19 H (10.5-15) % Plt Count 351 (150-450) 10^3/ul MPV 10 (7.4-10.4) um3 Neut % (Auto) 83.0 (38-83) % Lymph % (Auto) 5.8 L (25-47) % Gibson % (Auto) 10.0 H (1-9) % Eos % (Auto) 0.7 (0-6) % Baso % (Auto) 0.5 (0-2) % Absolute Neuts (auto) 10.5 H (1.5-7.7) 10^3/ul Absolute Lymphs (auto) 0.7 L (1.0-4.8) 10^3/ul Absolute Monos (auto) 1.3 H (0-0.8) 10^3/ul Absolute Eos (auto) 0.1 (0-0.6) 10^3/ul Absolute Basos (auto) 0.1 (0-0.2) 10^3/ul Absolute Nucleated RBC 0 10^3/ul Nucleated RBC % 0.1 Sodium 136 (133-145) mmol/L Potassium 4.3 (3.5-5.0) mmol/L Chloride 101 (101-111) mmol/L Carbon Dioxide 24 (22-32) mmol/L Anion Gap 11 (2-11) mmol/L BUN 34 H (6-24) mg/dL Creatinine 1.17 (0.67-1.17) mg/dL Est GFR ( Amer) 79.0 (>60) Est GFR (Non-Af Amer) 61.5 (>60) BUN/Creatinine Ratio 29.1 H (8-20) Glucose 120 H (70-100) mg/dL Lactic Acid 1.2 (0.5-2.0) mmol/L Calcium 9.2 (8.6-10.3) mg/dL Total Bilirubin 0.90 (0.2-1.0) mg/dL AST 26 (13-39) U/L ALT 28 (7-52) U/L Alkaline Phosphatase 235 H (34-104) U/L C-Reactive Protein 238.94 H (< 5.00) mg/L Total Protein 7.4 (6.4-8.9) g/dL Albumin 3.5 (3.2-5.2) g/dL Globulin 3.9 (2-4) g/dL Albumin/Globulin Ratio 0.9 L (1-3) Lipase 24 (11.0-82.0) U/L Result Diagrams: 10/09/17 21:25 10/09/17 21:25 Lab Statement: Any lab studies that have been ordered have been reviewed, and results considered in the medical decision making process. - CT Abdomen/Pelvis CT CT Interpretation: Positive (See Comments) - IMPRESSION: High-grade small bowel obstruction secondary to numerous right inguinal hernia. Increasing moderate amount of ascites but no abscess or free air. Identification of portal vein thrombosis, extending into the SMV, with multiple collateral vessels. Caudate and segment right hepatic lobe mass is highly suspicious for malignant neoplasm such as hepatoma. Possible second 2.5 cm lesion inferior tip of the right hepatic lobe. Tiny hypodensity right hepatic lobe is nonspecific but metastasis not excluded. Gallstones. Dr. Zamora has reviewed this radiology report. CT Interpretation Completed By: Radiologist Re-Evaluation - Re-Evaluation First Eval Re-Evaluation Time: 03:58 Comment: I reviewed the CT results with the pt. Pt reports portal vein thrombosis is not new. Pt is on warfarin partly for this. He has an upcoming appointment on 10/15/17 with GI. Abdominal Pain Fem Course/Dx - Course Course Of Treatment: Pt very complicated with extremely large ing hernia now with high grade obstruction. Pt reports portal vein thrombosis is not new, and it appears that there is collateral flow. What is also new is liver masses concerning for malignancy, likely hepatoma. Pt is on warfarin partly for the thrombosis. He has an upcoming appointment on 10/15/17 with GI. Pt has history of pulmonary embolism, pericardial effusion, afib for which he had ablation. All echocardiograms show normal heart function here recently. Called [facility] who was unable to accept pt. Then d/w our hospitalist and our surgeon. This pt' s case is extremely complicated and will require higher level of care, likely with surgical ICU. [facility] will accept pt. They want NG tube placed and INR reversed. Will place NG tube AFTER first unit of plasma due to bleeding concerns. - Diagnoses Provider Diagnoses: Small bowel obstruction, Inguinal hernia, Hepatoma, Portal vein thrombosis - Provider Notifications Discussed Care Of Patient With: [facility] Time Discussed With Above Provider: 04:00 Instructed by Provider To: Other - I discussed pt care with the [facility]. They report they don't have any beds to accept the pt. [04:08] I spoke with Dr. Rutherford, hospitalist, who recommends transfer. [04:50 I discussed case with hospitalist from the [facility]. He states the surgeon the pt saw is no longer there. [04:59] I spoke with Dr. Kong, surgeon, who reports the pt is not a surgical candidate here. He recommends to medically treat him. [05:16] I discussed the case with Dr. Dejesus , surgeon at [facility]. He wants the pt's INR reversed, an NG tube placed, and they will accept the pt for transfer. - Critical Care Time Critical Care Time: 75-104 min - 75 minutes - CCT is EXCLUSIVE of separately billable procedures. Includes several consults, reevals, review of all records and counseling of the patient. Discharge - Discharge Plan Condition: Good Disposition: TRANS HIGHER LVL OF CARE FAC Discharge Disposition Comment: [facility] Referrals: Bertram Chinchilla DO [Primary Care Provider] - The documentation as recorded by the Matt pimentel Angela accurately reflects the service I personally performed and the decisions made by me, Burton Zamora MD.
--- NOTE | 2017-10-10 07:59 | RAD ---
CLINICAL HISTORY: Nausea, vomiting, diarrhea, abdominal pain COMPARISON: August 13, 2017, November 03, 2015 TECHNIQUE: Multiple contiguous axial CT scans were obtained of the abdomen and pelvis after the administration of intravenous contrast. Coronal and sagittal multiplanar reformations are submitted for review. Oral contrast was administered. Delayed images were obtained through the abdomen and pelvis. FINDINGS: LUNG BASES: The lung bases are clear. LIVER: The liver is heterogeneous in attenuation. There is a simple cyst of the inferior margin of the right lobe of liver. Again noted is enlargement of the caudate lobe with hypoperfusion of the caudate lobe that resolves on delayed imaging. This is similar to the previous examination. There is nonfilling of the right left portal veins consistent with the history of thrombosis. There is relative enlargement of the hepatic arteries. The appearance is similar to the previous examination. BILE DUCTS: There is no intrahepatic or extrahepatic biliary dilatation. GALLBLADDER: Multiple gallstones are noted. There is no pericholecystic inflammatory change. PANCREAS: The pancreas is normal, without mass or ductal dilatation. SPLEEN: Normal in size and appearance. UPPER GI TRACT: Evaluation of the gastrointestinal tract is limited by incomplete gastric distention. The upper GI tract is unremarkable. SMALL BOWEL AND MESENTERY: There is diffuse distention mild dilatation of small bowel. The majority of the small bowel is noted within a right inguinal hernia. There is a transition point to relatively decompressed small bowel within the hernia sac, though oral contrast is noted distal to the transition point. COLON: There are multiple diverticula of the sigmoid colon. There is no pericolonic inflammatory change. ADRENALS: Normal bilaterally. KIDNEYS: The kidneys are normal in shape, size, contour, and axis. There is no hydronephrosis or nephrolithiasis. BLADDER: The bladder is collapsed rounded Serrano catheter. PELVIC ORGANS: The prostate gland is normal. The seminal vesicles are symmetric. AORTA: There is calcific atherosclerotic disease of the abdominal aorta and its branches, without aneurysmal dilatation IVC: Unremarkable LYMPH NODES: There are multiple shotty subcentimeter short axis lymph nodes in the retroperitoneum. There is no lymphadenopathy by size criteria. ABDOMINAL WALL: Again noted is a very large right inguinal hernia with the majority of the small bowel mesentery located within the scrotum. There is a small fat-containing left inguinal hernia. BONES AND SOFT TISSUES: There are mild diffuse degenerative changes. OTHER: There is a moderate amount of ascites, predominantly within the hernia sac. IMPRESSION: 1. THERE IS DISTENTION AND MILD DILATATION OF PROXIMAL LOOPS OF SMALL BOWEL WITH TRANSITION POINT TO DECOMPRESSED SMALL BOWEL WITHIN A LARGE VENTRAL HERNIA SAC. ORAL CONTRAST IS NOTED DISTAL TO THE TRANSITION POINT CONSISTENT WITH PARTIAL OR INTERMITTENT OBSTRUCTION. 2. AGAIN NOTED IS ENLARGEMENT OF HYPOPERFUSION OF THE CAUDATE LOBE NOT CLEARLY IDENTIFIABLE MASS, THOUGH AN INFILTRATIVE NEOPLASM MAY GIVE A SIMILAR APPEARANCE. THIS IS SIMILAR TO THE AUGUST 13, 2017 EXAMINATION. 3. AGAIN NOTED IS PORTAL VENOUS THROMBOSIS. 4. CHOLELITHIASIS. 5. NOTED ABOVE, THERE IS A VERY LARGE RIGHT INGUINAL HERNIA CONTAINING THE MAJORITY OF THE SMALL BOWEL AND MESENTERY. 6. THERE IS MODERATE AMOUNT OF ASCITES, PREDOMINANTLY WITHIN THE HERNIA SAC.
[2017-10-10] MEDS ORDERED: Ondansetron INJ* 2 MG/ML VIAL IV ONE (08:21)
[2017-10-10 09:51] VITALS: BP 163/55
--- NOTE | 2017-10-13 09:20 | ED ---
Progress - Progress Note Progress Note: Patient's final urine cultures reveals 75- 100,000 Klebsiella pneumonia, 75-100, 000 Serratia marcescens. Final sensitivities are available as well. Patient was transferred to [facility]. Will forward results. Leo Araujo, aware. Re-Evaluation - Re-Evaluation First Eval Re-Evaluation Time: 03:58 Comment: I reviewed the CT results with the pt. Pt reports portal vein thrombosis is not new. Pt is on warfarin partly for this. He has an upcoming appointment on 10/15/17 with GI. Course/Dx - Course Course Of Treatment: Pt very complicated with extremely large ing hernia now with high grade obstruction. Pt reports portal vein thrombosis is not new, and it appears that there is collateral flow. What is also new is liver masses concerning for malignancy, likely hepatoma. Pt is on warfarin partly for the thrombosis. He has an upcoming appointment on 10/15/17 with GI. Pt has history of pulmonary embolism, pericardial effusion, afib for which he had ablation. All echocardiograms show normal heart function here recently. Called [facility] who was unable to accept pt. Then d/w our hospitalist and our surgeon. This pt' s case is extremely complicated and will require higher level of care, likely with surgical ICU. [facility] will accept pt. They want NG tube placed and INR reversed. Will place NG tube AFTER first unit of plasma due to bleeding concerns. - Diagnoses Provider Diagnoses: Small bowel obstruction, Inguinal hernia, Hepatoma, Portal vein thrombosis - Provider Notifications Time Discussed With Above Provider: 04:00 Instructed by Provider To: Other - I discussed pt care with the [facility] transfer center. They report they don't have any beds to accept the pt. [04:08] I spoke with Dr. Rutherford, hospitalist, who recommends transfer. [04:50 I discussed case with hospitalist from the [facility]. He states the surgeon the pt saw is no longer there. [04:59] I spoke with Dr. Kong, surgeon, who reports the pt is not a surgical candidate here. He recommends to medically treat him. [05:16] I discussed the case with Dr. Dejesus , surgeon at [facility]. He wants the pt's INR reversed, an NG tube placed, and they will accept the pt for transfer. - Critical Care Time Critical Care Time: 75-104 min - 75 minutes - CCT is EXCLUSIVE of separately billable procedures. Includes several consults, reevals, review of all records and counseling of the patient.
== END 2017-10-10 09:47 | disposition short-term general hospital (02) ==
LOC: ED 20:34
DX: K56.609 Unspecified intestinal obstruction, unspecified as to partial versus complete obstruction (principal); K40.90 Unilateral inguinal hernia, without obstruction or gangrene, not specified as recurrent; C22.0 Liver cell carcinoma; I81 Portal vein thrombosis; R11.2 Nausea with vomiting, unspecified; R19.7 Diarrhea, unspecified; R07.9 Chest pain, unspecified; R06.02 Shortness of breath; Z87.891 Personal history of nicotine dependence; R10.9 Unspecified abdominal pain
CPT/HCPCS: 36415; 36430; 74177; 80053; 81003; 81015; 83605; 83690; 85025; 85610; 86140; 86900; 86901; 86927; 87077; 87086; 87186; 96365; 96375; 99284; J0696; J2405; J3430; P9017; Q9967

== ENCOUNTER 2017-10-22 02:16 | Inpatient (IN) | payer MEDICARE ==
[2017-10-22 04:44] LABS: ABS Basophils 0.1 10^3/ul (0-0.2); ABS Eosinophils 0.1 10^3/ul (0-0.6); ABS Lymphocytes 0.6 10^3/ul (1.0-4.8); ABS Monocytes 1.1 10^3/ul (0-0.8); ABS Neutrophils 14.7 10^3/ul (1.5-7.7); ABS Nucleated RBC 0 10^3/ul; Eosinophil % 0.5 % (0-6); Hematocrit 31 % (42-52); Hemoglobin 10.1 g/dl (14.0-18.0); Lymphocyte % 3.9 % (25-47); Mean Corpuscular HGB Conc 32 g/dl (31-36); Mean Corpuscular Hemoglobin 22 pg (27-31); Mean Corpuscular Volume 69 fL (80-94); Mean Platelet Volume 10 um3 (7.4-10.4); Nucleated Red Blood Cells % 0.1; Platelet Count 394 10^3/ul (150-450); Red Blood Count 4.57 10^6/ul (4.0-5.4); Red Cell Distribution Width 19 % (10.5-15); White Blood Count 16.6 10^3/ul (3.5-10.8)
[2017-10-22 04:49] LABS: INR 1.46 (0.77-1.02)
[2017-10-22 04:52] LABS: EGFR Non-African American 111.2 (>60)
[2017-10-22 06:26] LABS: Urine Appearance Cloudy; Urine Blood 3+ (Negative); Urine Color Yellow; Urine Ketones 1+ (Negative); Urine Protein 1+(30 mg/dL) (Negative); Urine Specific Gravity 1.006 (1.010-1.030); Urine Urobilinogen Negative (Negative)
[2017-10-22] MEDS ORDERED: Piperacillin/Tazobac ADVAN(*) 3.375 GM in NS 0.9% 100 ML* 100 ML IVPB ONE (06:32)
--- NOTE | 2017-10-22 07:00 | ED ---
Igor Juarez Gabriel, scribed for Bolivar Ugalde MD on 10/22/17 at 0259 . Complex/Multi-Sys Presentation - HPI Summary HPI Summary: This patient is a 72 year old M BIBA to [facility] with a chief complaint of weakness after being discharged from [facility]. Pt was in medical center for a week and was discharged at 2100 yesterday for a bowel obstruction due to an inguinal hernia. No surgery was done they were able to put the hernia back naturally stopping the obstruction allowing him to have BMs. Originally the pt went to [facility] but was transfer due to a clot in his liver he was taking Coumadin until they discovered bleeding in his esophagus that was fixed with clips. Once the patient arrived home he was walking gup his front steps when he felt weak causing him to drop to his knees and he was unable to get up alone. The patient climbed up the stairs into the house while they waited for the ambulance. They tested his stool and found no blood or infection. Patient reports yellow colored stool and light headedness. Patient denies LOC, difficulty ambulating, ABD pain, and vomiting. - History Of Current Complaint Chief Complaint: EDWeakness Time Seen by Provider: 10/22/17 02:26 Hx Obtained From: Patient Onset/Duration: Lasting Hours, Still Present Timing: Constant Associated Signs And Symptoms: Positive: Weakness - Allergies/Home Medications Allergies/Adverse Reactions: Allergies Allergy/AdvReac Type Severity Reaction Status Date / Time No Known Allergies Allergy Verified 10/09/17 23:49 PMH/Surg Hx/FS Hx/Imm Hx Endocrine/Hematology History: Denies: Hx Diabetes, Hx Thyroid Disease Cardiovascular History: Reports: Hx Congestive Heart Failure - recent hospitalization, Hx Hypertension, Hx Valvular Heart Disease - PE, Other Cardiovascular Problems/Disorders - a fib, pericardial effusion 06/06/16 admission Denies: Hx Peripheral Vascular Disease Respiratory History: Reports: Hx Pleural Effusion, Hx Pulmonary Embolism GI History: Reports: Hx Cirrhosis, Other GI Disorders - inguinal hernia History: Reports: Other Problems/Disorders - UTI 05/28/16 Serrano inserted Denies: Hx Dialysis, Hx Renal Disease Musculoskeletal History: Denies: Hx Arthritis, Hx Osteoporosis Sensory History: Reports: Hx Contacts or Glasses Opthamlomology History: Reports: Hx Contacts or Glasses Neurological History: Reports: Other Neuro Impairments/Disorders - dizziness 1010 admission Denies: Hx Headaches, Hx Seizures, Hx Transient Ischemic Attacks (TIA) - Cancer History Cancer Type, Location and Year: questionable hepatic mass - Surgical History Surgery Procedure, Year, and Place: Cardiac Ablation 08/17/15. Tonsillectomy - Immunization History Date of Tetanus Vaccine: unk Date of Influenza Vaccine: 2016 Infectious Disease History: No Infectious Disease History: Denies: Traveled Outside the [place] in Last 30 Days - Family History Known Family History: Positive: Cardiac Disease - CHF - Social History Alcohol Use: Rare Substance Use Type: Reports: None Smoking Status (MU): Former Smoker Review of Systems Negative: Abdominal Pain, Vomiting Neurological: Negative - LOC , Other - light headedness Positive: Weakness All Other Systems Reviewed And Are Negative: Yes Physical Exam - Summary Physical Exam Summary: VITAL SIGNS: Reviewed. GENERAL: Patient is a well-developed and nourished male who is lying comfortable in the stretcher. Patient is not in any acute respiratory distress. HEAD AND FACE: No signs of trauma. No ecchymosis, hematomas or skull depressions. No sinus tenderness. EYES: PERRLA, EOMI x 2, No injected conjunctiva, no nystagmus. EARS: Hearing grossly intact. Ear canals and tympanic membranes are within normal limits. MOUTH: Oropharynx within normal limits. NECK: Supple, trachea is midline, no adenopathy, no JVD, no carotid bruit, no c- spine tenderness, neck with full ROM. CHEST: Symmetric, no tenderness at palpation LUNGS: Clear to auscultation bilaterally. No wheezing or crackles. CVS: Regular rate and rhythm, systolic murmur over the left sternal border ABDOMEN: Soft, non-tender. No signs of distention. No rebound no guarding. Bowel sounds are normal. Very large right inguinal hernia with induration with no tenderness, no change in hernia size according to the patient EXTREMITIES: FROM in all major joints, no edema, no cyanosis or clubbing. NEURO: Alert and oriented x 3. No acute neurological deficits. Speech is normal and follows commands. SKIN: Dry and warm Triage Information Reviewed: Yes Vital Signs On Initial Exam: Initial Vitals BP 152/56 10/22/17 02:22 Vital Signs Reviewed: Yes Diagnostics - Vital Signs Vital Signs Temp Pulse Resp BP Pulse Ox 10/22/17 02:30 86 18 144/57 98 10/22/17 02:29 97.5 F 86 18 153/67 98 10/22/17 02:23 86 18 98 10/22/17 02:22 152/56 - Laboratory Result Diagrams: 10/22/17 03:40 10/22/17 03:40 Lab Statement: Any lab studies that have been ordered have been reviewed, and results considered in the medical decision making process. - Radiology CXR Radiology Interpretation Completed By: ED Physician - no acute process - EKG 0327 Cardiac Rate: NL EKG Rhythm: Sinus Rhythm - at 85 BPM EKG Interpretation: non specific T wave changes in inferior Complex Multi-Symp Course/Dx Assessment/Plan: This patient is a 72 year old M BIBA to [facility] with a chief complaint of weakness after being discharged from [facility]. Pt was in [facility] for a week and was discharged at 2100 yesterday for a bowel obstruction due to an inguinal hernia. No surgery was done they were able to put the hernia back naturally stopping the obstruction allowing him to have BMs. Originally the pt went to [facility] but was transfer due to a clot in his liver he was taking Coumadin until they discovered bleeding in his esophagus that was fixed with clips. Once the patient arrived home he was walking gup his front steps when he felt weak causing him to drop to his knees and he was unable to get up alone. The patient climbed up the stairs into the house while they waited for the ambulance. They tested his stool and found no blood or infection. Patient reports yellow colored stool and light headedness. Patient denies LOC, difficulty ambulating, ABD pain, and vomiting. An EKG reveals sinus 85 bpm non specific T wave changes in inferior leads. CXR reveals no acute process. Test results with no significant abnormalities except for UA that is positive for UTI. Dx weakness, UTI, large inguinal hernia. We discussed patient care with Dr. Guidry and they have accepted the patient for admittance. Patient will be admitted. The patient is agreeable with this plan. - Diagnoses Provider Diagnoses: Weakness, UTI (urinary tract infection), Hernia, inguinal - Physician Notifications Discussed Care Of Patient With: Meghan Guidry Time Discussed With Above Provider: 06:42 Instructed by Provider To: Admit As Inpatient Discharge - Discharge Plan Condition: Fair Disposition: ADMITTED TO [facility] Referrals: Bertram Chinchilla DO [Primary Care Provider] - The documentation as recorded by the Igor pimentel Gabriel accurately reflects the service I personally performed and the decisions made by me, Bolivar Ugaled MD.
--- NOTE | 2017-10-22 07:55 | RAD ---
INDICATION: Weakness COMPARISON: None TECHNIQUE: An AP portable view obtained at 0352 hours is submitted. FINDINGS: Bones/Soft Tissues: There are no acute bony findings. Cardiomediastinal: The cardiomediastinal silhouette is normal. Lungs: There are no infiltrates. There is mild bibasilar hypoventilation Pleura: Minor blunting left costophrenic angle, unchanged. Other: None IMPRESSION: MINOR PLEURAL AND PERIPHERAL CHANGE LEFT LUNG BASE. NO ACUTE FINDINGS.
[2017-10-22] MEDS ORDERED: Al Hydrox/Mg Hydrox/Simet LIQ* 30 ML UDC PO PRN (08:49)
[2017-10-22] MEDS: Magnesium Oxide TAB* 400 MG PO SCH (11:18)
[2017-10-22] MEDS: cefTRIAXone VIAL(*) 1,000 MG in D5W 50 ML BAG* 50 ML IVPB SCH (11:21)
[2017-10-22] MEDS ORDERED: Dextrose 50% Syringe 50 ML* 25 GM/50 ML SYRINGE IV PUSH PRN (12:40)
[2017-10-22] MEDS ORDERED: Enoxaparin(*) 150 MG/ML 1 ML SYRINGE SUBCUT SCH (13:00)
--- NOTE | 2017-10-22 14:08 | HP ---
ADDENDUM NOW INCLUDED ON THIS REPORT CC: Dr. Chinchilla * HISTORY AND PHYSICAL: DATE OF ADMISSION: 10/22/17 TIME OF ADMISSION: 9 a.m. CHIEF COMPLAINT: Weakness. HISTORY OF PRESENT ILLNESS: This is a 72-year-old man with history of a large inguinal hernia, AFib and cirrhosis, who was discharged from [facility] yesterday. He had been admitted there for 1 week for a small bowel obstruction , where he received an NG tube and it resolved with conservative measures per the patient. He does not have his discharge summary or records here with him and they have not been obtained yet. Based on his history, he reports presenting with abdominal pain and was noted to have a small bowel obstruction; however, was treated with conservative measures because they were concerned that surgery would be too dangerous for him. Then yesterday, he managed during the 3-1/5 hour car ride home quite well; however, when he got to his house and began to walk into the house, he had a few steps and walking up the first step he felt diffusely weak and collapsed to his knees. He did not lose consciousness. He had no dizziness, chest pain, or palpitations associated with the fall. He was accompanied by his at that time who could not help him up. He states being in bed for the past week for his weakness and states that prior to his hospital admission, he was able to walk up a flight of stairs without any issues. PAST MEDICAL HISTORY: 1. AFib, status post cardioversion in 2017. 2. Cirrhosis of unknown etiology. This is currently being worked up at [facility]. 3. Indwelling Serrano catheter, which has changed 1 time per month. It was most recently changed 2 weeks ago. 4. Large inguinal hernia with no plans for operative intervention. 5. Congestive heart failure with an EF of 35% in 2015, which recovered to 60% in 2017. 6. Pulmonary embolism, on anticoagulation. HOME MEDICATIONS: An accurate medication reconciliation is needed. We need to obtain his discharge instructions from [facility] from yesterday. SOCIAL HISTORY: He lives at home with his . He does not smoke. He does not drink alcohol and he uses no illicit drugs. REVIEW OF SYSTEMS: Denies fevers, chills, abdominal pain, nausea, vomiting, or chest pain. His last bowel movement was Cyndi that is yesterday. PHYSICAL EXAMINATION GENERAL: Alert, well-appearing man in no distress. He speaks slowly, but has no trouble word finding and is oriented x3. VITAL SIGNS: Temperature 98.4, heart rate 90, blood pressure 165/61, pulse ox 97% on room air. HEENT: Pupils equal, round and reactive to light. No icterus. Moist mucosa. NECK: No JVP. No cervical adenopathy. LUNGS: Clear bilaterally. CHEST: Regular rate and rhythm. No murmurs. PMI nondisplaced. ABDOMEN: Soft, nontender, nondistended. No guarding or rebound. Liver palpable at the costal margin. There is an extremely large right inguinal hernia down to his knees. The skin is thin with no purulence or drainage. EXTREMITIES: Chronic venous stasis changes with 2+ pitting edema bilaterally. There is a skin tear on the right barnett about 2 inches. DIAGNOSTIC STUDIES/LAB DATA: White blood cells 16.6 with 88% neutrophils, hemoglobin 10.1, platelets 394. Sodium 135, potassium 3.7, chloride 103, bicarb 22, BUN 10, creatinine 0.7, magnesium 1.5. CRP 173. Alk phos 237. INR 1.46. UA shows +3 blood, +3 leukocyte esterase, and +3 white blood cells. EKG, normal sinus rhythm, normal axis, normal intervals. No ST or T-wave changes. Chest x-ray, minor pleural and peripheral change at the left lung base. ASSESSMENT AND PLAN: This is a 72-year-old man with history of cirrhosis and a large inguinal hernia with a chronic indwelling Serrano catheter, who presents 1 day after discharge from [facility] with weakness. 1. Weakness and collapse. This maybe multifactorial and related to his recent hospitalization and deconditioning. We need a Physical Therapy consult to evaluate as needed for short-term rehab and his ability to walk at home. We will check orthostatics as I suspect he was diuresed at [facility]; however, I will obtain records to confirm this. He also appears to have a urinary tract infection on his UA; however, this is somewhat difficult to interpret given that it is a chronic Serrano catheter. However, he does have evidence of infection with a leukocytosis with left shift and given this finding of weakness , they warrants treatment. Because he is on warfarin, I am using ceftriaxone and we will follow up on the urine culture. 2. Large right inguinal hernia. He reports that this is nonoperable based on his admission at [facility]. I will get the records and we will go from there if he needs surgical evaluation. 3. Cirrhosis compensated. He reports to me that the etiology of his cirrhosis is unknown. He has never had hepatitis or been an alcohol consumer. I will get the records from [facility] again to see what they have done so far. He appears quite compensated right now with no ascites, bleeding or encephalopathy. 4. History of pulmonary embolism. I am unsure when this is, but he is on warfarin for the pulmonary embolisms. He is subtherapeutic, so he needs to be bridged with Lovenox. I see no reason why he should not be on a NOAC, so I will start the Lovenox bridge for now and discuss transitioning to a NOAC with him. 5. Disposition. Admit to inpatient services. 6. Diet. Unrestricted. 7. Activity. Ad-byron and needs a Physical Therapy consult. ADDENDUM: I have reviewed the medical records from his hospitalization at [facility] from which he was discharged yesterday. He was treated for an upper GI bleed and was found to have large esophageal varices that were banded. At that time and upon discharge, his anticoagulation was held due to the GI bleed. However, it appears that they were under the impression that his anticoagulation was for atrial fibrillation, however, his AFib was cardioverted over a year ago and he tells me that the indication for his anticoagulation is actually a PE. However , it is unclear when this PE occurred. We have no record of it here and it is not documented on his records at the outside hospital. Given his recent GI bleed and an unclear history of the time course of the pulmonary embolism, I am holding his anticoagulation for now. A repeat CT angiogram can be considered; however, I do not believe this is indicated at this time. 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 I believe his risk for bleeding outweighs the risk of anticoagulating a remote PE of which we do not know the burden of disease. [id number]/[facility] #: [id number]/[facility] #: [id number] WINNIE
[2017-10-22] MEDS ORDERED: Insulin LISPRO* 1 UNITS UNIT SUBCUT SCH (16:30)
[2017-10-22] MEDS ORDERED: Warfarin TAB(*) 2.5 MG PO SCH (17:00)
[2017-10-22] MEDS ORDERED: Warfarin TAB(*) 2 MG PO SCH (17:00)
[2017-10-22] MEDS: Metoprolol Tartrate TAB* 100 MG TAB PO SCH (21:21)
[2017-10-22] MEDS: Acetaminophen TAB* 325 MG PO PRN (21:32)
[2017-10-22] MEDS: MICONAZOLE NITRATE TP SCH (22:14)
--- NOTE | 2017-10-22 22:49 | HP ---
HISTORY AND PHYSICAL: ADDENDUM: I have reviewed the medical records from his hospitalization at [facility] from which he was discharged yesterday. He was treated for an upper GI bleed and was found to have large esophageal varices that were banded. At that time and upon discharge, his anticoagulation was held due to the GI bleed. However, it appears that they were under the impression that his anticoagulation was for atrial fibrillation, however, his AFib was cardioverted over a year ago and he tells me that the indication for his anticoagulation is actually a PE. However, it is unclear when this PE occurred. We have no record of it here and it is not documented on his records at the outside hospital. Given his recent GI bleed and an unclear history of the time course of the pulmonary embolism, I am holding his anticoagulation for now. A repeat CT angiogram can be considered; however, I do not believe this is indicated at this time. 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 I believe his risk for bleeding outweighs the risk of anticoagulating a remote PE of which we do not know the burden of disease. [id number]/[facility] #: [id number] WINNIE
--- NOTE | 2017-10-22 23:31 | PN ---
Progress Note - Progress Note Date of Service: 10/22/17 Note: Mr Forrest's roommate spiked a fever and tested positive for influenza B, as such Mr Forrest will be prescribed oseltamivir prophylaxis & a new room found.
[2017-10-22] MEDS: Oseltamivir CAP* 75 MG CAP PO SCH (23:50)
[2017-10-23 05:40] LABS: ABS Basophils 0.2 10^3/ul (0-0.2); ABS Eosinophils 0.2 10^3/ul (0-0.6); ABS Lymphocytes 0.7 10^3/ul (1.0-4.8); ABS Monocytes 0.9 10^3/ul (0-0.8); ABS Neutrophils 12.6 10^3/ul (1.5-7.7); ABS Nucleated RBC 0 10^3/ul; Eosinophil % 1.4 % (0-6); Hematocrit 30 % (42-52); Hemoglobin 9.5 g/dl (14.0-18.0); Lymphocyte % 4.8 % (25-47); Mean Corpuscular HGB Conc 32 g/dl (31-36); Mean Corpuscular Hemoglobin 22 pg (27-31); Mean Corpuscular Volume 69 fL (80-94); Mean Platelet Volume 9 um3 (7.4-10.4); Nucleated Red Blood Cells % 0; Platelet Count 382 10^3/ul (150-450); Red Blood Count 4.35 10^6/ul (4.0-5.4); Red Cell Distribution Width 19 % (10.5-15); White Blood Count 14.6 10^3/ul (3.5-10.8)
[2017-10-23 05:42] LABS: INR 1.46 (0.77-1.02)
[2017-10-23 05:49] LABS: EGFR Non-African American 163.9 (>60)
[2017-10-23] MEDS: Oxybutynin XL TAB* 5 MG PO SCH (09:14)
[2017-10-23] MEDS: Metoprolol Tartrate TAB* 100 MG TAB PO SCH ×2 (09:15→21:44)
[2017-10-23] MEDS: Furosemide TAB* 40 MG PO SCH (09:15)
[2017-10-23] MEDS: Magnesium Oxide TAB* 400 MG PO SCH (09:15)
[2017-10-23] MEDS: Diltiazem CD CAP* 240 MG PO SCH (09:15)
[2017-10-23] MEDS: Digoxin TAB* 0.125 MG PO SCH (09:15)
[2017-10-23] MEDS: Ferrous Sulfate TAB* 325 MG PO SCH (09:15)
[2017-10-23] MEDS: Oseltamivir CAP* 75 MG CAP PO SCH (09:16)
[2017-10-23] MEDS: MICONAZOLE NITRATE TP SCH ×2 (09:16→21:44)
[2017-10-23] MEDS: cefTRIAXone VIAL(*) 1,000 MG in D5W 50 ML BAG* 50 ML IVPB SCH (10:40)
[2017-10-23] MEDS ORDERED: Iron Sucrose* 200 MG in NS 0.9% 100 ML* 100 ML IVPB ONE (10:53)
--- NOTE | 2017-10-23 11:01 | PN ---
Subjective Date of Service: 10/23/17 Interval History: Still feels too weak to go home. No chills, sweats. Scheduled for Serrano change at [facility] next week. Objective Active Medications: Acetaminophen (Tylenol Tab*) 650 mg PO Q4H PRN PRN Reason: FEVER/PAIN Last Admin: 10/22/17 21:32 Dose: 650 mg Al Hydrox/Mg Hydrox/Simethicone (Maalox Plus*) 30 ml PO Q6H PRN PRN Reason: INDIGESTION Dextrose (D50w Syringe 50 Ml*) 12.5 gm IV PUSH .FOR FS < 60 - SS PRN PRN Reason: FS < 60 Digoxin (Lanoxin Tab*) 0.125 mg PO DAILY [facility] Last Admin: 10/23/17 09:15 Dose: 0.125 mg Diltiazem HCl (Cardizem Cd Cap*) 240 mg PO DAILY [facility] Last Admin: 10/23/17 09:15 Dose: 240 mg Ferrous Sulfate (Ferrous Sulfate Tab*) 325 mg PO DAILY [facility] Last Admin: 10/23/17 09:15 Dose: 325 mg Furosemide (Lasix Tab*) 40 mg PO DAILY [facility] Last Admin: 10/23/17 09:15 Dose: 40 mg Ceftriaxone Sodium 1,000 mg/ (Dextrose) 50 mls @ 200 mls/hr IVPB Q24H [facility] Last Admin: 10/23/17 10:40 Dose: 200 mls/hr Magnesium Oxide (Magox 400 Tab*) 800 mg PO DAILY [facility] Last Admin: 10/23/17 09:15 Dose: 800 mg Metoprolol Tartrate (Lopressor Tab*) 100 mg PO BID [facility] Last Admin: 10/23/17 09:15 Dose: 100 mg Pto Nf Med ( Miconazole Nitrate [ Desenex] 43 Gm) 1 gm TP BID [facility] Last Admin: 10/23/17 09:16 Dose: 1 gm Oseltamivir Phosphate (Tamiflu Cap*) 75 mg PO DAILY [facility] Stop: 10/31/17 09:01 Last Admin: 10/23/17 09:16 Dose: 75 mg Oxybutynin Chloride (Ditropan Xl Tab*) 10 mg PO DAILY [facility] Last Admin: 10/23/17 09:14 Dose: 10 mg Pharmacy Profile Note (Coumadin Daily Reminder*) 1 note FOLLOW UP 1700 [facility] Last Admin: 10/22/17 18:44 Dose: 1 note Warfarin Sodium (Coumadin Tab(*)) 5 mg PO MoFr@1700 EFE PRN Reason: Protocol Vital Signs - 8 hr 10/23/17 10/23/17 10/23/17 03:45 07:38 08:00 Temperature 98.6 F 98.5 F Pulse Rate 78 88 Respiratory 18 24 24 Rate Blood Pressure 148/70 154/70 (mmHg) O2 Sat by Pulse 96 97 Oximetry 10/23/17 09:15 Temperature Pulse Rate 102 Respiratory Rate Blood Pressure (mmHg) O2 Sat by Pulse Oximetry Oxygen Devices in Use Now: None Appearance: Alert, partly up in bed. In good spirits. Looks comfortable. Eyes: No Scleral Icterus Neck: NL Appearance and Movements; NL JVP, No Thyroid Enlargement, Masses Respiratory: Symmetrical Chest Expansion and Respiratory Effort, Clear to Auscultation, Clear to Percussion Cardiovascular: NL Sounds; No Murmurs; No JVD, RRR, No Edema, - Abdominal: NL Sounds; No Tenderness; No Distention, No Hepatosplenomegaly, - - Massive R inguinal hernia Extremities: No Clubbing, Cyanosis, - - Tr edema BL Skin: No Nodules or Sclerosis, - - marked hyperpigmentation BL Neurological: Alert and Oriented x 3, NL Sensation Result Diagrams: 10/23/17 05:11 10/23/17 05:11 Assess/Plan/Problems-Billing Assessment: - Patient Problems (1) Iron deficiency anemia Current Visit: Yes Status: Acute Code(s): D50.9 - IRON DEFICIENCY ANEMIA, UNSPECIFIED SNOMED Code(s): 06179495 Comment: Still anemic and hypochromic on oral iron. One dose IV iron sucrose 10/23. Iron studies addon. (2) Cirrhosis Current Visit: Yes Status: Acute Comment: Cryptogenic. Varices banded at [facility]. Start omeprazole. (3) Atrial fibrillation Current Visit: No Status: Acute Code(s): I48.91 - UNSPECIFIED ATRIAL FIBRILLATION SNOMED Code(s): 03131383 Comment: S/P ablation 08/17/15 in [place]. Continue digoxin. NSR. No need for tele. (4) Serrano catheter in place Current Visit: Yes Status: Acute Code(s): Z92.89 - PERSONAL HISTORY OF OTHER MEDICAL TREATMENT SNOMED Code(s): 056726813 Comment: Chronic Serrano, changed at [facility]. Ceftriaxone ordered for ? UTI. C&S pending. In absence of fever or UTI sx's will stop ceftriaxone. (5) Exposure to influenza Current Visit: Yes Status: Acute Code(s): Z20.828 - CONTACT W AND EXPOSURE TO OTH VIRAL COMMUNICABLE DISEASES SNOMED Code(s): 679352880 Comment: Complete oseltamivir course. (6) Scrotal hernia Current Visit: Yes Status: Acute Code(s): K40.90 - UNIL INGUINAL HERNIA, W/ O OBST OR GANGR, NOT SPCF RECUR SNOMED Code(s): 79862813 Comment: Massive hernia with loss of domain. Not a surgical candidate.
[2017-10-23] MEDS ORDERED: Omeprazole CAP* 20 MG PO SCH (11:30)
[2017-10-23] MEDS ORDERED: Warfarin TAB(*) 1 MG PO SCH (17:00)
[2017-10-23] MEDS: Acetaminophen TAB* 325 MG PO PRN (21:44)
[2017-10-24] MEDS: Acetaminophen TAB* 325 MG PO PRN (05:31)
[2017-10-24 08:26] VITALS: BP 133/62
[2017-10-24] MEDS: Oseltamivir CAP* 75 MG CAP PO SCH (08:32)
[2017-10-24] MEDS: Ferrous Sulfate TAB* 325 MG PO SCH (08:32)
[2017-10-24] MEDS: Metoprolol Tartrate TAB* 100 MG TAB PO SCH (08:33)
[2017-10-24] MEDS: Furosemide TAB* 40 MG PO SCH (08:33)
[2017-10-24] MEDS: Oxybutynin XL TAB* 5 MG PO SCH (08:33)
[2017-10-24] MEDS: Digoxin TAB* 0.125 MG PO SCH (08:33)
[2017-10-24] MEDS: Diltiazem CD CAP* 240 MG PO SCH (08:33)
[2017-10-24] MEDS: MICONAZOLE NITRATE TP SCH (08:34)
[2017-10-24] MEDS: Magnesium Oxide TAB* 400 MG PO SCH (08:34)
[2017-10-24] MEDS ORDERED: Warfarin TAB(*) 5 MG PO SCH (17:00)
== END 2017-10-24 11:17 | DRG 812 ==
LOC: ED 02:16 → MEDTELE 08:49
PROVIDERS: ADMIT Internal Medicine; ATTEND Internal Medicine
DX: D50.9 Iron deficiency anemia, unspecified (principal); I48.91 Unspecified atrial fibrillation; I50.9 Heart failure, unspecified; I11.0 Hypertensive heart disease with heart failure; K74.69 Other cirrhosis of liver; Z20.828 Contact with and (suspected) exposure to other viral communicable diseases; K40.90 Unilateral inguinal hernia, without obstruction or gangrene, not specified as recurrent; Z86.711 Personal history of pulmonary embolism; Z87.440 Personal history of urinary (tract) infections; Z82.49 Family history of ischemic heart disease and other diseases of the circulatory system; Z87.891 Personal history of nicotine dependence
CPT/HCPCS: 36415; 71045; 80053; 81003; 81015; 82140; 82728; 83540; 83550; 83605; 83690; 83735; 85025; 85610; 85730; 86140; 86850; 86900; 86901; 87077; 87086; 93005; 99284; A9270-GY; J0696; J1650; J1756; J2543

== ENCOUNTER 2018-01-27 01:37 | Inpatient (IN) | payer MEDICARE ==
[2018-01-27] MEDS ORDERED: NS 0.9% 1000 ML* 1,000 ML IV ONE (01:43)
[2018-01-27] MEDS ORDERED: Vancomycin(*) 1,250 MG in NS 0.9% 250 ML* 250 ML IVPB ONE (02:01)
[2018-01-27 02:17] LABS: EGFR Non-African American 53.9 (>60)
[2018-01-27 02:40] LABS: ABS Basophils 0 10^3/ul (0-0.2); ABS Eosinophils 0.1 10^3/ul (0-0.6); ABS Lymphocytes 0.6 10^3/ul (1.0-4.8); ABS Neutrophils 11.1 10^3/ul (1.5-7.7); ABS Nucleated RBC 0 10^3/ul; Eosinophil % 0.8 % (0-6); Hematocrit 30 % (42-52); Hemoglobin 9.3 g/dl (14.0-18.0); Lymphocyte % 4.9 % (25-47); Mean Corpuscular HGB Conc 31 g/dl (31-36); Mean Corpuscular Hemoglobin 20 pg (27-31); Mean Corpuscular Volume 65 fL (80-94); Mean Platelet Volume 8.3 um3 (7.4-10.4); Nucleated Red Blood Cells % 0; Platelet Count 554 10^3/ul (150-450); Red Blood Count 4.56 10^6/ul (4.0-5.4); Red Cell Distribution Width 23 % (10.5-15); White Blood Count 12.9 10^3/ul (3.5-10.8)
[2018-01-27 03:01] LABS: Urine Appearance Cloudy; Urine Blood 1+ (Negative); Urine Color Amber; Urine Ketones Trace (Negative); Urine Protein 1+(30 mg/dL) (Negative); Urine Specific Gravity 1.017 (1.010-1.030); Urine Urobilinogen Positive (Negative)
--- NOTE | 2018-01-27 03:06 | ED ---
Pj Juarez Stephanie, scribed for Adi Perkins MD on 01/27/18 at 0210 . Complex/Multi-Sys Presentation - HPI Summary HPI Summary: The pt is a 72 y/o M BIBA to the ED with c/o fall that occurred earlier today. He denies LOC or head trauma. The pt states he has had increased weakness for the past few months since September. He was dx with bowel obstruction and cirrhosis of the liver. Symptoms include bilateral LE edema and erythema. The pt denies any current physical pain. - History Of Current Complaint Chief Complaint: EDWeakness Time Seen by Provider: 01/27/18 01:43 Hx Obtained From: Patient, Family/Roll Grinder - December Onset/Duration: Sudden Onset Severity Currently: Mild Associated Signs And Symptoms: Positive: Weakness, Edema - bilateral LE. Negative: Syncope - Allergies/Home Medications Allergies/Adverse Reactions: Allergies Allergy/AdvReac Type Severity Reaction Status Date / Time No Known Allergies Allergy Verified 12/15/17 13:40 Home Medications: Home Medications Ondansetron TAB* [Zofran 4 MG Tab*] 4 mg PO QID PRN 01/27/18 [History Confirmed 01/27/18] Zolpidem TAB* [Ambien*] 10 mg PO BEDTIME PRN 01/27/18 [History Confirmed ] PMH/Surg Hx/FS Hx/Imm Hx Endocrine/Hematology History: Denies: Hx Diabetes, Hx Thyroid Disease Cardiovascular History: Reports: Hx Congestive Heart Failure - recent hospitalization, Hx Hypertension, Hx Valvular Heart Disease - PE, Other Cardiovascular Problems/Disorders - a fib, pericardial effusion 06/06/16 admission Denies: Hx Peripheral Vascular Disease Respiratory History: Reports: Hx Pleural Effusion, Hx Pulmonary Embolism GI History: Reports: Hx Cirrhosis, Hx Obstructive Bowel, Other GI Disorders - inguinal hernia History: Reports: Other Problems/Disorders - UTI 05/28/16 [place] inserted Denies: Hx Dialysis, Hx Renal Disease Musculoskeletal History: Denies: Hx Arthritis, Hx Osteoporosis Sensory History: Reports: Hx Contacts or Glasses Denies: Hx Hearing Aid Opthamlomology History: Reports: Hx Contacts or Glasses Neurological History: Reports: Other Neuro Impairments/Disorders - dizziness 1010 admission Denies: Hx Headaches, Hx Seizures, Hx Transient Ischemic Attacks (TIA) Psychiatric History: Reports: Hx Depression - Cancer History Cancer Type, Location and Year: questionable hepatic mass - Surgical History Surgery Procedure, Year, and Place: Cardiac Ablation 08/17/15. Tonsillectomy - Immunization History Date of Tetanus Vaccine: unk Date of Influenza Vaccine: 2016 Infectious Disease History: No Infectious Disease History: Denies: Traveled Outside the [place] in Last 30 Days - Family History Known Family History: Positive: Cardiac Disease - CHF - Social History Occupation: Retired Lives: With Family Alcohol Use: Rare Hx Substance Use: No Substance Use Type: Reports: None Hx Tobacco Use: Yes Smoking Status (MU): Former Smoker Review of Systems Constitutional: Negative - head trauma Negative: Fever Positive: Edema - bilateral LE Positive: Other - bilateral LE erythema Negative: Syncope All Other Systems Reviewed And Are Negative: Yes Physical Exam - Summary Physical Exam Summary: Appearance: Well-appearing, Well-nourished, lying in bed comfortably Skin: Warm, dry, cellulites and erythema in R leg from midleg down, no jaundice Eyes: sclera anicteric, no conjunctiva pallor ENT: mucous membranes moist, pharynx appears normal Neck: Supple, nontender Respiratory: Clear to auscultation, no signs of respiratory distress Cardiovascular: Normal S1, S2. No murmurs. Normal distal pulses in tibial and radial bilaterally. Abdomen: Soft, nontender, normal active bowel sounds present, ascites present Musculoskeletal: Normal, Strength/ROM Intact Neurological: A&Ox3, awake and alert, mentation is normal, speech is fluent and appropriate, no asterixis Psychiatric: affect is normal, does not appear anxious or depressed Triage Information Reviewed: Yes Vital Signs On Initial Exam: Initial Vitals Temp Pulse Resp BP Pulse Ox 98.2 F 70 16 107/66 100 01/27/18 01:39 01/27/18 01:39 01/27/18 01:39 01/27/18 01:39 01/27/18 01:39 Vital Signs Reviewed: Yes Diagnostics - Vital Signs Vital Signs Temp Pulse Resp BP Pulse Ox 01/27/18 02:00 72 17 99 01/27/18 01:47 14 01/27/18 01:39 98.2 F 70 16 107/66 100 - Laboratory Lab Results: Lab Results 01/27/18 01/27/18 01/27/18 Range/Units 01:50 02:21 02:21 WBC 12.9 H (3.5-10.8) 10^3/ul RBC 4.56 (4.0-5.4) 10^6/ul Hgb 9.3 L (14.0-18.0) g/dl Hct 30 L (42-52) % MCV 65 L (80-94) fL MCH 20 L (27-31) pg MCHC 31 (31-36) g/dl RDW 23 H (10.5-15) % Plt Count 554 H (150-450) 10^3/ul MPV 8.3 (7.4-10.4) um3 Neut % (Auto) 86.5 H (38-83) % Lymph % (Auto) 4.9 L (25-47) % Talbot % (Auto) 7.5 H (0-7) % Eos % (Auto) 0.8 (0-6) % Baso % (Auto) 0.3 (0-2) % Absolute Neuts (auto) 11.1 H (1.5-7.7) 10^3/ul Absolute Lymphs (auto) 0.6 L (1.0-4.8) 10^3/ul Absolute Monos (auto) 1.0 H (0-0.8) 10^3/ul Absolute Eos (auto) 0.1 (0-0.6) 10^3/ul Absolute Basos (auto) 0 (0-0.2) 10^3/ul Absolute Nucleated RBC 0 10^3/ul Nucleated RBC % 0 Sodium 137 L (139-145) mmol/L Potassium 4.6 (3.5-5.0) mmol/L Chloride 104 (101-111) mmol/L Carbon Dioxide 25 (22-32) mmol/L Anion Gap 8 (2-11) mmol/L BUN 17 (6-24) mg/dL Creatinine 1.31 H (0.67-1.17) mg/dL Est GFR ( Amer) 69.4 (>60) Est GFR (Non-Af Amer) 53.9 (>60) BUN/Creatinine Ratio 13.0 (8-20) Glucose 120 H (70-100) mg/dL Calcium 7.9 L (8.6-10.3) mg/dL Total Bilirubin 0.40 (0.2-1.0) mg/dL AST 18 (13-39) U/L ALT 14 (7-52) U/L Alkaline Phosphatase 275 H (34-104) U/L Ammonia 35 (16-53) mcmol/L Total Protein 6.2 L (6.4-8.9) g/dL Albumin 2.6 L (3.2-5.2) g/dL Globulin 3.6 (2-4) g/dL Albumin/Globulin Ratio 0.7 L (1-3) TSH 4.54 (0.34-5.60) mcIU/mL Urine Color Urine Appearance Urine pH (5-9) Ur Specific [place] (1.010-1.030) Urine Protein (Negative) Urine Ketones (Negative) Urine Blood (Negative) Urine Nitrate (Negative) Urine Bilirubin (Negative) Urine Urobilinogen (Negative) Ur Leukocyte Esterase (Negative) Urine WBC (Auto) (Absent) Urine RBC (Auto) (Absent) Calcium Oxalate Crystal (Absent) Urine Bacteria (Absent) Hyaline Casts (Absent) Urine Glucose (Negative) Urine Ascorbic Acid (Negative) 01/27/18 Range/Units 02:25 WBC (3.5-10.8) 10^3/ul RBC (4.0-5.4) 10^6/ul Hgb (14.0-18.0) g/dl Hct (42-52) % MCV (80-94) fL MCH (27-31) pg MCHC (31-36) g/dl RDW (10.5-15) % Plt Count (150-450) 10^3/ul MPV (7.4-10.4) um3 Neut % (Auto) (38-83) % Lymph % (Auto) (25-47) % Talbot % (Auto) (0-7) % Eos % (Auto) (0-6) % Baso % (Auto) (0-2) % Absolute Neuts (auto) (1.5-7.7) 10^3/ul Absolute Lymphs (auto) (1.0-4.8) 10^3/ul Absolute Monos (auto) (0-0.8) 10^3/ul Absolute Eos (auto) (0-0.6) 10^3/ul Absolute Basos (auto) (0-0.2) 10^3/ul Absolute Nucleated RBC 10^3/ul Nucleated RBC % Sodium (139-145) mmol/L Potassium (3.5-5.0) mmol/L Chloride (101-111) mmol/L Carbon Dioxide (22-32) mmol/L Anion Gap (2-11) mmol/L BUN (6-24) mg/dL Creatinine (0.67-1.17) mg/dL Est GFR ( Amer) (>60) Est GFR (Non-Af Amer) (>60) BUN/Creatinine Ratio (8-20) Glucose (70-100) mg/dL Calcium (8.6-10.3) mg/dL Total Bilirubin (0.2-1.0) mg/dL AST (13-39) U/L ALT (7-52) U/L Alkaline Phosphatase (34-104) U/L Ammonia (16-53) mcmol/L Total Protein (6.4-8.9) g/dL Albumin (3.2-5.2) g/dL Globulin (2-4) g/dL Albumin/Globulin Ratio (1-3) TSH (0.34-5.60) mcIU/mL Urine Color [place] Urine Appearance Cloudy Urine pH 5.0 (5-9) Ur Specific [place] 1.017 (1.010-1.030) Urine Protein 1+(30 mg/dl) A (Negative) Urine Ketones Trace A (Negative) Urine Blood 1+ A (Negative) Urine Nitrate Negative (Negative) Urine Bilirubin Negative (Negative) Urine Urobilinogen Positive A (Negative) Ur Leukocyte Esterase 2+ A (Negative) Urine WBC (Auto) 3+(>20/hpf) A (Absent) Urine RBC (Auto) 3+(>10/hpf) A (Absent) Calcium Oxalate Crystal Present A (Absent) Urine Bacteria 1+ A (Absent) Hyaline Casts Present A (Absent) Urine Glucose Negative (Negative) Urine Ascorbic Acid * A (Negative) Result Diagrams: 01/27/18 02:21 01/27/18 01:50 Lab Statement: Any lab studies that have been ordered have been reviewed, and results considered in the medical decision making process. - EKG 02:13 Cardiac Rate: NL EKG Rhythm: Sinus Rhythm - NSR at 70 BPM, P waves, QRS complex, and T waves are within normal limits, T waves and intervals are normal, no ischemic changes. This is a normal EKG Re-Evaluation - Re-Evaluation First Eval Re-Evaluation Time: 02:58 Change: Unchanged - ED physician discussed plan of admission with the pt and the pt understands and agrees. Complex Multi-Symp Course/Dx Course Of Treatment: At 02:55, ED physician discussed plan of admission with Grayson Mead. - Diagnoses Provider Diagnoses: Cellulitis and abscess of lower extremity, Cirrhosis of liver Discharge - Sign-Out/Discharge Documenting (check all that apply): Discharge/Admit/Transfer - Discharge Plan Condition: Guarded Disposition: ADMITTED TO [facility] Referrals: Bertram Chinchilla DO [Primary Care Provider] - - Billing Disposition and Condition Condition: GUARDED Disposition: [facility] [place] The documentation as recorded by the Pj pimentel Stephanie accurately reflects the service I personally performed and the decisions made by me, Adi Perkins MD.
[2018-01-27] MEDS ORDERED: Ondansetron SYRINGE* 4 MG/2 ML SYRINGE (from 40mg/20ml vial) IV PRN (03:32)
[2018-01-27] MEDS ORDERED: Furosemide IV* 10 MG/ML 2 ML VIAL (20 MG) IV ONE (03:41)
[2018-01-27] MEDS ORDERED: Diltiazem TAB* 60 MG PO SCH ×2 (06:00→15:27)
[2018-01-27 06:05] LABS: ABS Basophils 0.1 10^3/ul (0-0.2); ABS Eosinophils 0.1 10^3/ul (0-0.6); ABS Lymphocytes 0.8 10^3/ul (1.0-4.8); ABS Neutrophils 11.8 10^3/ul (1.5-7.7); ABS Nucleated RBC 0 10^3/ul; Eosinophil % 0.8 % (0-6); Hematocrit 30 % (42-52); Hemoglobin 9.7 g/dl (14.0-18.0); Lymphocyte % 6.1 % (25-47); Mean Corpuscular HGB Conc 33 g/dl (31-36); Mean Corpuscular Hemoglobin 21 pg (27-31); Mean Corpuscular Volume 65 fL (80-94); Mean Platelet Volume 8.5 um3 (7.4-10.4); Nucleated Red Blood Cells % 0; Platelet Count 518 10^3/ul (150-450); Red Blood Count 4.58 10^6/ul (4.0-5.4); Red Cell Distribution Width 23 % (10.5-15); White Blood Count 13.8 10^3/ul (3.5-10.8)
[2018-01-27] MEDS: Heparin VIAL(*) 5000 UNITS/ML VIAL (FIVE THOUSAND) SUBCUT SCH ×3 (06:07→21:42)
[2018-01-27] MEDS: Diltiazem TAB* 60 MG PO SCH ×2 (06:07→11:41)
[2018-01-27 06:10] LABS: EGFR Non-African American 62.7 (>60)
[2018-01-27 06:11] LABS: INR 1.06 (0.77-1.02)
[2018-01-27] MEDS: cefTRIAXone(*) 1 GM in NS 0.9% 50 ML* 50 ML IVPB SCH (06:24)
--- NOTE | 2018-01-27 06:49 | HP ---
CC: Dr. Chinchilla* HISTORY AND PHYSICAL: DATE OF ADMISSION: 01/27/18 PRIMARY CARE PROVIDER: Dr. Chinchilla. ATTENDING PHYSICIAN WHILE IN THE HOSPITAL: Meghan Guidry DO* (report dictated by Kevin Mead NP). CHIEF COMPLAINT: Weakness. HISTORY OF PRESENT ILLNESS: Mr. Forrest is a 72-year-old male patient. He has a history of COLLADO, Afib, cirrhosis, a large inguinal hernia that is nonoperable , history of CHF, last EF was 35%, history of PE, esophageal varices with bleeding in the past, and a history of hypertension. He comes in today, he states the last couple of weeks he has just not been feeling well. He has had intermittent nausea with some vomiting. He has had some intermittent diarrhea, chills 1 day last week. He just states that he has been more weak, very fatigued. He has had no appetite. He actually has not been taking his medications because he was more worried about his weakness and the fact that he thought he was too weak to take them. He said that today he was getting up this evening to try to ambulate and he states he has been ambulating with his walker and typically doing okay, but today he just got up and his legs gave out , he was so weak that he just fell. He denied any syncope. He denied hitting his head. He states he went down to his knees. He was calling out for help. He is not having any pain now. He is moving his extremities in the bed without any pain. He states that he called out for help. His found him, could not get him to stand and she called 911 because he has had a progressive decline over the last couple of weeks. He did note tonight that the right leg appeared to be more red, particularly around the ankle and heel. There were reports of him having weeping on Friday from the legs because he has had so much edema. He states his stomach looks a little bit more protruded, but he had a bowel movement yesterday. He states his catheter has had output, but it has been very concentrated, and in addition to this he has noticed a foul odor. Again he has not had any fevers documented. He did have chills 1 day last week and he states his was recently sick with URI symptoms and he said he had cough a couple of weeks ago, but he has not had anymore symptoms. He came into the ED, it was noted his white count was elevated. He appeared to have a UTI. There was concern for the possible cellulitis and we were asked to evaluate for admission. PAST MEDICAL HISTORY: Significant for: 1. COLLADO. 2. Afib. 3. Cirrhosis. 4. Inguinal hernia which is nonoperative. 5. History of CHF, last known EF 35%. 6. History of PE a couple of years ago. 7. History of esophageal varices with bleeding. 8. Hypertension. PAST SURGICAL HISTORY: 1. He has had a thoracentesis. 2. He has had a pericardial window. 3. He has had a tonsillectomy. HOME MEDICATIONS: According to the meds he brought in include: 1. Oxybutynin 10 mg p.o. daily. 2. Zofran 4 mg p.o. 4 times a day as needed. 3. Digoxin 125 mcg p.o. daily. 4. Ambien 10 mg at bedtime as needed. 5. Metoprolol 50 mg p.o. b.i.d. 6. Lopressor 25 mg p.o. daily. 7. Lasix 20 mg daily. 8. Ferrous sulfate 325 mg p.o. daily. 9. Diltiazem CD 240 mg p.o. daily. ALLERGIES TO MEDICATIONS: Include no known drug allergies. FAMILY HISTORY: His mother had a history of uterine cancer. The father had a history of CHF. SOCIAL HISTORY: He is a former smoker. He rarely drinks alcohol. Surrogate decision maker is his . REVIEW OF SYSTEMS: There is no documented fever. He had 1 day last week with chills. He does admit to having more ascites. No significant weight change. He denied any double vision. No ear discharge. No rhinorrhea. No sore throat. No thyroid enlargement. He did have a cough. There is no shortness of breath, no orthopnea, no nocturnal dyspnea. There was no abdominal pain. He did admit to having some nausea previously, but none now. He did have episode of vomiting last week, but none now. Denies having any abdominal discomfort. He denies any loss of consciousness, no pruritus, and no skin ulcerations. Review of 14 systems completed, all others negative. PHYSICAL EXAMINATION GENERAL: At this time, Mr. Forrest is a 72-year-old male patient. He is chronically ill appearing. He is older than stated age. He is sitting in the ED stretcher. He does not appear to be in any acute distress. VITAL SIGNS: Blood pressure 109/61, pulse 70, respirations 16, O2 sat 100%, temperature 98.2. HEENT: Head is atraumatic. Eyes: Sclerae anicteric, and not pale. Throat: Oral mucosa appears to be moist. No oropharyngeal erythema. NECK: Supple. LUNGS: Clear to auscultation bilaterally. No wheezes, rales, or rhonchi. HEART: Sounds S1 and S2. Regular rate and rhythm. No murmurs, rubs, or gallops. ABDOMEN: Protruded. Bowel sounds were present. He had a large inguinal hernia to his right inguinal area. He was nontender. EXTREMITIES: Pulses were +2, but he did have +4 pitting edema bilaterally to just above his ankles. In the right lower extremity, he did have a significant amount of erythema noted around the ankle and to the foot, but no obvious open areas. He had brawny discoloration which is probably from venous insufficiency bilaterally. He had no pain on palpation, but again he did have significant edema. He is moving his extremities. NEUROLOGIC: He is awake. He is alert. He is oriented x3. He had no gross focal deficits. SKIN: Intact. LABORATORY DATA/DIAGNOSTIC STUDIES: Labs revealed WBC 12.9, RBC of 4.56, hemoglobin 9.3, hematocrit 30, and platelet count of 554,000. Sodium 137, potassium 4.6, chloride 104, bicarbonate 25, BUN 17, creatinine 1.31 which is up from his baseline, glucose 120, calcium 7.9, total bilirubin 0.4, AST 18, ALT 14, alkaline phosphatase 275, ammonia 35. TSH is normal. His albumin was 2.6. Urine showed 1+ protein, trace ketones, 1+ blood, positive urobilinogen, 2 + leukocyte esterase, 3+ wbc, 3+ rbc, 1+ bacteria. Toxicology had a low digoxin level. He had EKG obtained today which shows normal sinus rhythm, rate of 70. No ST elevations or T-wave inversions were noted. It was reviewed to the previous EKG, appears to be similar. Old medical records reviewed. ASSESSMENT AND PLAN: Mr. Forrest is a 72-year-old male patient with a complex medical history presenting to the emergency department today with complaints of increased swelling, weakness, worsening edema. We were asked to evaluate for admission. He will be admitted under inpatient status for: 1. Weakness. I suspect this is multifactorial from an urinary tract infection and cellulitis. I will go ahead and put him on Rocephin. I will send off blood cultures. We will wait for cultures. I am checking a CRP and we will continue to follow him when he is able to obviously get a PT evaluation. 2. Nonalcoholic steatohepatitis with liver cirrhosis. He does appear to have ascites. I am going to get an ascites checked. We may need to consider doing a tap and sending the fluid off for analysis. At this point, he is nontender. His bowel sounds are present. We will continue his current medical regimen. I am going to go ahead and get him on IV Lasix. I do note the elevated creatinine ; however, I am worried about the amount of fluids that he has on board. I would like to give him some Lasix today, follow his creatinine levels and we will diurese as needed. 3. Urinary tract infection. He is going to be placed on Rocephin. We should replace the catheter, but I would like to do this when Urology is on-call for backup given his complex anatomy. 4. History of congestive heart failure. Again, I am going to diurese him currently. Because of the setting of the acute kidney injury, I am going to hold off on the Cozaar for now. 5. History of pulmonary embolism. I am going to put him on DVT prophylaxis. I do note that he does have a history of esophageal varices which are bleeding, but he just had a scope and there was no active bleeding noted at that point, so I think we are safe to go ahead and just give him prophylaxis, but I will not put him on full anticoagulation. 6. Esophageal varices. Follow with GI. 7. History of hypertension. Continue meds as prescribed. 8. Code status. He wishes to be a DNR. 9. Fluids, electrolytes, and nutrition. I have ordered a low protein diet. TIME SPENT: Time spent on the admission was 60 minutes, greater than half the time was spent [id number] with the patient obtaining my history and physical and the other half time spent going over the plan of care with the patient and implementing plan of care. I did discuss the plan of care with my attending, Dr. Guidry. She is in agreement. KEVIN MEAD NP [id number]/CPS #: [id number]
--- NOTE | 2018-01-27 08:03 | RAD ---
INDICATION: Cough. COMPARISON: Comparison is made with a prior study from October 22 2017. TECHNIQUE: A portable view of the chest was obtained. FINDINGS: Cardiac and mediastinal contours appear to be within normal limits. The lungs are underinflated. There is a small infiltrate at the left lung base. No pleural effusion is seen. There is increased lucency in the upper abdomen possibly representing free intraperitoneal air. Recommend an abdominal series for further evaluation. The results of this examination were discussed with Dr. Burgess. IMPRESSION: 1. LOW LUNG VOLUMES, SMALL LEFT BASILAR INFILTRATE. 2. POSSIBLE FREE INTRAPERITONEAL AIR. RECOMMEND AN ABDOMINAL SERIES WITH AN UPRIGHT OR DECUBITUS FILM FOR FURTHER EVALUATION.
--- NOTE | 2018-01-27 08:12 | RAD ---
HISTORY: Ascites check COMPARISONS: CT dated October 10, 2017 TECHNIQUE: Multiple transverse and longitudinal ultrasound images were obtained of the abdomen in 4 quadrants for documentation of ascites using grayscale and color Doppler imaging. FINDINGS: There is a moderate amount of ascites in the 4 quadrants of the abdomen. The visualized liver is echogenic with a micronodular contour IMPRESSION: 1. ASCITES. 2. MICRONODULAR CONTOUR TO THE LIVER SUGGESTIVE OF CIRRHOSIS.
[2018-01-27] MEDS ORDERED: Metoprolol Tartrate TAB* 100 MG TAB PO SCH (09:00)
--- NOTE | 2018-01-27 09:10 | RAD ---
INDICATION: Abdominal distention evaluate for free intraperitoneal air. COMPARISON: Comparison is made with a prior CT of the abdomen and pelvis from October 10, 2017. TECHNIQUE: Supine and decubitus views of the abdomen were obtained. FINDINGS: There are multiple distended loops of bowel with air-fluid levels. This appears to be mainly small bowel although colonic distention cannot be excluded. No free intraperitoneal air is seen. IMPRESSION: FINDINGS MOST CONSISTENT WITH A BOWEL OBSTRUCTION LESS LIKELY PARALYTIC ILEUS. RECOMMEND CONTINUED FOLLOW-UP.
[2018-01-27] MEDS: Oxybutynin XL TAB* 5 MG PO SCH (09:17)
[2018-01-27] MEDS: Ferrous Sulfate TAB* 325 MG PO SCH (09:17)
[2018-01-27] MEDS: Digoxin TAB* 0.125 MG PO SCH (09:18)
[2018-01-27] MEDS: Metoprolol Tartrate TAB* 50 mg PO SCH ×2 (09:20→21:42)
--- NOTE | 2018-01-27 15:22 | PN ---
Subjective Date of Service: 01/27/18 Interval History: No new c/o. He was too sleep-deproived to cooperate with PT. He states he is scheduled for a fup EGD soon with Dr. Marshall. Objective Active Medications: Digoxin (Lanoxin Tab*) 0.125 mg PO DAILY [facility] Last Admin: 01/27/18 09:18 Dose: 0.125 mg Diltiazem HCl (Cardizem Tab*) 60 mg PO Q6HR [facility] Last Admin: 01/27/18 11:41 Dose: Not Given Ferrous Sulfate (Ferrous Sulfate Tab*) 325 mg PO DAILY [facility] Last Admin: 01/27/18 09:17 Dose: 325 mg Heparin Sodium (Porcine) (Heparin Vial(*)) 5,000 units SUBCUT Q8HR [facility] Last Admin: 01/27/18 13:20 Dose: 5,000 units Ceftriaxone Sodium 1 gm/ (Sodium Chloride) 50 mls @ 200 mls/hr IVPB Q24H [facility] Last Admin: 01/27/18 06:24 Dose: 200 mls/hr Iron Sucrose 200 mg/ Sodium (Chloride) 110 mls @ 110 mls/hr IVPB ONCE ONE Stop: 01/27/18 16:29 Metoprolol Tartrate (Lopressor Tab*) 50 mg PO BID [facility] Last Admin: 01/27/18 09:20 Dose: Not Given Ondansetron HCl (Zofran Syringe*) 4 mg IV Q6H PRN PRN Reason: NAUSEA Oxybutynin Chloride (Ditropan Xl Tab*) 10 mg PO DAILY [facility] Last Admin: 01/27/18 09:17 Dose: 10 mg Vital Signs - 8 hr 01/27/18 01/27/18 01/27/18 08:00 08:12 09:18 Temperature Pulse Rate 80 Respiratory 16 Rate Blood Pressure (mmHg) O2 Sat by Pulse 100 Oximetry 01/27/18 11:09 Temperature 97.7 F Pulse Rate 87 Respiratory 17 Rate Blood Pressure 98/54 (mmHg) O2 Sat by Pulse 100 Oximetry Oxygen Devices in Use Now: None Appearance: Alert, supine in bed. Neutral affect. Looks comfortable. Eyes: No Scleral Icterus Abdominal: - - very distended, soft, dull at flanks. nl BS. not tender. Extremities: No Clubbing, Cyanosis, - - 2+ edema BL, both lower legs wrinkled, hyperpigmented Skin: No Nodules or Sclerosis, - - lower legs hyperpigmented Neurological: Alert and Oriented x 3, NL Sensation Result Diagrams: 01/27/18 05:11 01/27/18 05:11 Additional Lab and Data: Lab Results 01/27/18 01/27/18 01/27/18 Range/Units 01:50 02:21 02:21 WBC 12.9 H (3.5-10.8) 10^3/ul RBC 4.56 (4.0-5.4) 10^6/ul Hgb 9.3 L (14.0-18.0) g/dl Hct 30 L (42-52) % MCV 65 L (80-94) fL MCH 20 L (27-31) pg MCHC 31 (31-36) g/dl RDW 23 H (10.5-15) % Plt Count 554 H (150-450) 10^3/ul MPV 8.3 (7.4-10.4) um3 Neut % (Auto) 86.5 H (38-83) % Lymph % (Auto) 4.9 L (25-47) % [place] % (Auto) 7.5 H (0-7) % Eos % (Auto) 0.8 (0-6) % Baso % (Auto) 0.3 (0-2) % Absolute Neuts (auto) 11.1 H (1.5-7.7) 10^3/ul Absolute Lymphs (auto) 0.6 L (1.0-4.8) 10^3/ul Absolute Monos (auto) 1.0 H (0-0.8) 10^3/ul Absolute Eos (auto) 0.1 (0-0.6) 10^3/ul Absolute Basos (auto) 0 (0-0.2) 10^3/ul Absolute Nucleated RBC 0 10^3/ul Nucleated RBC % 0 Sodium 137 L (139-145) mmol/L Potassium 4.6 (3.5-5.0) mmol/L Chloride 104 (101-111) mmol/L Carbon Dioxide 25 (22-32) mmol/L Anion Gap 8 (2-11) mmol/L BUN 17 (6-24) mg/dL Creatinine 1.31 H (0.67-1.17) mg/dL Est GFR ( Amer) 69.4 (>60) Est GFR (Non-Af Amer) 53.9 (>60) BUN/Creatinine Ratio 13.0 (8-20) Glucose 120 H (70-100) mg/dL Calcium 7.9 L (8.6-10.3) mg/dL Total Bilirubin 0.40 (0.2-1.0) mg/dL AST 18 (13-39) U/L ALT 14 (7-52) U/L Alkaline Phosphatase 275 H (34-104) U/L Ammonia 35 (16-53) mcmol/L Total Protein 6.2 L (6.4-8.9) g/dL Albumin 2.6 L (3.2-5.2) g/dL Globulin 3.6 (2-4) g/dL Albumin/Globulin Ratio 0.7 L (1-3) TSH 4.54 (0.34-5.60) mcIU/mL Urine Color Urine Appearance Urine pH (5-9) Ur Specific [place] (1.010-1.030) Urine Protein (Negative) Urine Ketones (Negative) Urine Blood (Negative) Urine Nitrate (Negative) Urine Bilirubin (Negative) Urine Urobilinogen (Negative) Ur Leukocyte Esterase (Negative) Urine WBC (Auto) (Absent) Urine RBC (Auto) (Absent) Calcium Oxalate Crystal (Absent) Urine Bacteria (Absent) Hyaline Casts (Absent) Urine Glucose (Negative) Urine Ascorbic Acid (Negative) 01/27/18 Range/Units 02:25 WBC (3.5-10.8) 10^3/ul RBC (4.0-5.4) 10^6/ul Hgb (14.0-18.0) g/dl Hct (42-52) % MCV (80-94) fL MCH (27-31) pg MCHC (31-36) g/dl RDW (10.5-15) % Plt Count (150-450) 10^3/ul MPV (7.4-10.4) um3 Neut % (Auto) (38-83) % Lymph % (Auto) (25-47) % [place] % (Auto) (0-7) % Eos % (Auto) (0-6) % Baso % (Auto) (0-2) % Absolute Neuts (auto) (1.5-7.7) 10^3/ul Absolute Lymphs (auto) (1.0-4.8) 10^3/ul Absolute Monos (auto) (0-0.8) 10^3/ul Absolute Eos (auto) (0-0.6) 10^3/ul Absolute Basos (auto) (0-0.2) 10^3/ul Absolute Nucleated RBC 10^3/ul Nucleated RBC % Sodium (139-145) mmol/L Potassium (3.5-5.0) mmol/L Chloride (101-111) mmol/L Carbon Dioxide (22-32) mmol/L Anion Gap (2-11) mmol/L BUN (6-24) mg/dL Creatinine (0.67-1.17) mg/dL Est GFR ( Amer) (>60) Est GFR (Non-Af Amer) (>60) BUN/Creatinine Ratio (8-20) Glucose (70-100) mg/dL Calcium (8.6-10.3) mg/dL Total Bilirubin (0.2-1.0) mg/dL AST (13-39) U/L ALT (7-52) U/L Alkaline Phosphatase (34-104) U/L Ammonia (16-53) mcmol/L Total Protein (6.4-8.9) g/dL Albumin (3.2-5.2) g/dL Globulin (2-4) g/dL Albumin/Globulin Ratio (1-3) TSH (0.34-5.60) mcIU/mL Urine Color [place] Urine Appearance Cloudy Urine pH 5.0 (5-9) Ur Specific [place] 1.017 (1.010-1.030) Urine Protein 1+(30 mg/dl) A (Negative) Urine Ketones Trace A (Negative) Urine Blood 1+ A (Negative) Urine Nitrate Negative (Negative) Urine Bilirubin Negative (Negative) Urine Urobilinogen Positive A (Negative) Ur Leukocyte Esterase 2+ A (Negative) Urine WBC (Auto) 3+(>20/hpf) A (Absent) Urine RBC (Auto) 3+(>10/hpf) A (Absent) Calcium Oxalate Crystal Present A (Absent) Urine Bacteria 1+ A (Absent) Hyaline Casts Present A (Absent) Urine Glucose Negative (Negative) Urine Ascorbic Acid * A (Negative) Assess/Plan/Problems-Billing Assessment: - Patient Problems (1) Atrial fibrillation Current Visit: No Status: Acute Code(s): I48.91 - UNSPECIFIED ATRIAL FIBRILLATION SNOMED Code(s): 49947775 Comment: S/P ablation 08/17/15 in [place]. Continue digoxin. Reduce diltiazem CD to 180 mg daily start 01/28. No AC due to GI bleeding. (2) Cirrhosis Current Visit: No Status: Acute Comment: Cryptogenic/COLLADO. Varices banded at [facility]. Start omeprazole 01/27. Dr. Beavers to see regarding fup EGD. (3) Iron deficiency anemia Current Visit: No Status: Acute Code(s): D50.9 - IRON DEFICIENCY ANEMIA, UNSPECIFIED SNOMED Code(s): 94761296 Comment: Still anemic and hypochromic on oral iron. One dose IV iron sucrose 01/27. Addon soluble transferrin receptor. (4) UTI (urinary tract infection) Current Visit: No Status: Acute Comment: C&S pending. Continue ceftriaxone. (5) Urinary retention Current Visit: Yes Status: Acute Code(s): R33.9 - RETENTION OF URINE, UNSPECIFIED SNOMED Code(s): 564275778 Comment: Serrano in place.
[2018-01-27] MEDS ORDERED: Diltiazem CD CAP* 180 MG PO ONE (15:26)
[2018-01-27] MEDS ORDERED: Iron Sucrose* 200 MG in NS 0.9% 100 ML* 100 ML IVPB ONE (15:30)
[2018-01-27] MEDS: Omeprazole CAP* 20 MG PO SCH (15:58)
[2018-01-27] MEDS ORDERED: Iron Sucrose* 200 MG in NS 0.9% 100 ML* 100 ML IVPB SCH (16:00)
--- NOTE | 2018-01-27 23:51 | CONS ---
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 HISTORY OF PRESENT ILLNESS: This 72-year-old man, who has an inoperable massive right inguinal hernia and a history of pulmonary embolism couple of years ago, has also had a long history of microcytic anemia. His CBC reports here in August 2015 show an MCV 75, which was gradually drifted down to the mid 60s, with his hemoglobin going from 10 to 12, and drifting down into the 9s. It is a very complicated history, but as regard to potential GI bleeding, he has never manifested any despite being on warfarin and Xarelto at times over the last couple of years. He has a history of some acid reflux in the past taking antacids, but has not required any prescription acid blockade. He denies any history of repetitive vomiting or hematemesis. His first endoscopy was at [facility] in September where varices were found and banded. That record is not available for review, but he was said to have cirrhosis. It is of note that his ALT has been normal over about 15 determinations over the last 2-1/2 years. The bilirubin also in the mid normal range at 0.5 with alkaline phosphatase climbing from 150 to 300. His ammonia and INR have been normal. Most recently, INR 1.06 on 01/27/18. He denies any history of rectal bleeding or tarry stool. PAST MEDICAL HISTORY: 1. Massive hernia. 2. History of pulmonary embolism. 3. History of atrial arrhythmias, status post ablation, fall 2015 at [facility]. 4. History of cardiac tamponade with pericardial window fall 2015, while on Xarelto. Subsequently, he was on warfarin. OUTPATIENT MEDICATIONS: 1. Digoxin 0.125. 2. Metoprolol 50 b.i.d. 3. Diltiazem 240. 4. Lasix 20. 5. Oxybutynin 10. 6. Ferrous sulfate 325. ALLERGIES: He has no known drug allergies. FAMILY HISTORY: His mother had uterine cancer. His father had congestive heart failure. 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 He is . He has been in the [facility] for rehab several times over the last year. REVIEW OF SYSTEMS: No history of dysphagia, repetitive vomiting, duodenal ulcer , aspirin use, hepatitis, no jaundice, TB or hemoptysis. He did have an episode of small bowel obstruction recently and is trying to be careful with his diet. He has a permanent indwelling Serrano. His hernia is felt to be inoperable. PHYSICAL EXAM: He is a chronically ill-appearing man with cervantes, in bed, regarding hi dinner with interest. He is afebrile, blood pressure 114/52, pulse 88. He is anicteric. HEENT exam is unremarkable. He has no spider angiomas. Lungs are clear. Heart sounds are crisp. His abdomen is protuberant , firm with normal bowel sounds. He has a massive right inguinal hernia. He is tensed, but not tender. Other imaging technique showed it contains colon. Rectal showed diminished tone and garland greasy stools submitted for Hemoccult. ( heme negative) Extremities show no deformity. Neurologic shows normal cranial nerves. He is moving all 4 extremities, although he is impeded by the massive hernia. DIAGNOSTIC STUDIES/LAB DATA: Imaging - ultrasound shows a micronodular liver. Abdominal plain film at 8 a.m. showed distended loops of bowel with air fluid levels. Labs today; hemoglobin 9.7, hematocrit 30, MCV 65, platelets 518. INR 1.06, BUN 16, creatinine 1.15, alkaline phosphatase 319, ALT 15, albumin 2.7, digoxin 0.6. IMPRESSION AND PLAN: This 72-year-old man with portal hypertension and found to have varices 4 months ago, now has a persistent iron-deficiency anemia. He does not have any overt gastrointestinal bleeding, but quite possibly has some portal hypertensive gastropathy. He certainly could have blood loss from his right colon but it would be slow and or very intermittant as he was heme negative today.. . He does not appear to be a candidate for workup of parts of his gastrointestinal tract below the duodenum. He has been evaluated by Hospice and is leaning on signing on even though his mental state now is fine. Frequent and aggressive intravenous iron would appear to be indicated. Aldactone or balanced Lasix might help his farrukh if pressure tolerated Whether esophageal banding will be the ultimate benefit is unclear. He has not had a clinical variceal bleed and it is doubtful that a very long-term chronic TERRY presentation would relate to oozing from varices. The ultimate plan, however, is deferred to those that have known him longer term. For the moment, he has received IV iron and would await the results of that and repeat it frequently if there is any sign of it helping. [id number]/[facility] #: [id number] WINNIE
[2018-01-28] MEDS: cefTRIAXone(*) 1 GM in NS 0.9% 50 ML* 50 ML IVPB SCH (04:45)
[2018-01-28] MEDS: Heparin VIAL(*) 5000 UNITS/ML VIAL (FIVE THOUSAND) SUBCUT SCH ×3 (04:57→21:12)
[2018-01-28] MEDS: Metoprolol Tartrate TAB* 50 mg PO SCH ×2 (10:06→21:12)
[2018-01-28] MEDS: Digoxin TAB* 0.125 MG PO SCH (10:06)
[2018-01-28] MEDS: Omeprazole CAP* 20 MG PO SCH (10:06)
[2018-01-28] MEDS: Ferrous Sulfate TAB* 325 MG PO SCH (10:06)
[2018-01-28] MEDS: Diltiazem CD CAP* 180 MG PO SCH (10:06)
[2018-01-28] MEDS: Oxybutynin XL TAB* 5 MG PO SCH (11:40)
--- NOTE | 2018-01-28 14:41 | PN ---
Subjective Date of Service: 01/28/18 Interval History: No new c/o. He states he has had decreased walking for about 6-12 months, coinciding with significant increase in the size of his hernia. Objective Active Medications: Digoxin (Lanoxin Tab*) 0.125 mg PO DAILY [facility] Last Admin: 01/28/18 10:06 Dose: 0.125 mg Diltiazem HCl (Cardizem Cd Cap*) 180 mg PO DAILY [facility] Last Admin: 01/28/18 10:06 Dose: 180 mg Ferrous Sulfate (Ferrous Sulfate Tab*) 325 mg PO DAILY [facility] Last Admin: 01/28/18 10:06 Dose: 325 mg Heparin Sodium (Porcine) (Heparin Vial(*)) 5,000 units SUBCUT Q8HR [facility] Last Admin: 01/28/18 04:57 Dose: 5,000 units Ciprofloxacin/Dextrose (Cipro 400 Mg Ivpremix(*)) 400 mg in 200 mls @ 200 mls/ hr IVPB Q12H [facility] Metoprolol Tartrate (Lopressor Tab*) 50 mg PO BID [facility] Last Admin: 01/28/18 10:06 Dose: 50 mg Omeprazole (Prilosec Cap*) 20 mg PO DAILY@0730 [facility] Last Admin: 01/28/18 10:06 Dose: 20 mg Ondansetron HCl (Zofran Syringe*) 4 mg IV Q6H PRN PRN Reason: NAUSEA Oxybutynin Chloride (Ditropan Xl Tab*) 10 mg PO DAILY [facility] Last Admin: 01/28/18 11:40 Dose: 10 mg Potassium Chloride (Klor Con Er Tab*) 10 meq PO TID [facility] Vital Signs - 8 hr 01/28/18 07:15 Temperature 98.2 F Pulse Rate 79 Respiratory 20 Rate Blood Pressure 114/60 (mmHg) O2 Sat by Pulse 100 Oximetry Oxygen Devices in Use Now: None Appearance: Alert, partly up in bed. Neutral affect. Looks comfortable. Eyes: No Scleral Icterus Abdominal: - - very distended, soft, not tender. massive scrotal hernia with bandage on it. Extremities: No Clubbing, Cyanosis, - - Tr edema, wrinkled lower legs Skin: No Nodules or Sclerosis, - - lower legs very hyperpigmentd Neurological: Alert and Oriented x 3, NL Sensation Result Diagrams: 01/27/18 05:11 01/27/18 05:11 Additional Lab and Data: Lab Results 01/27/18 01/27/18 01/27/18 Range/Units 01:50 02:21 02:21 WBC 12.9 H (3.5-10.8) 10^3/ul RBC 4.56 (4.0-5.4) 10^6/ul Hgb 9.3 L (14.0-18.0) g/dl Hct 30 L (42-52) % MCV 65 L (80-94) fL MCH 20 L (27-31) pg MCHC 31 (31-36) g/dl RDW 23 H (10.5-15) % Plt Count 554 H (150-450) 10^3/ul MPV 8.3 (7.4-10.4) um3 Neut % (Auto) 86.5 H (38-83) % Lymph % (Auto) 4.9 L (25-47) % [place] % (Auto) 7.5 H (0-7) % Eos % (Auto) 0.8 (0-6) % Baso % (Auto) 0.3 (0-2) % Absolute Neuts (auto) 11.1 H (1.5-7.7) 10^3/ul Absolute Lymphs (auto) 0.6 L (1.0-4.8) 10^3/ul Absolute Monos (auto) 1.0 H (0-0.8) 10^3/ul Absolute Eos (auto) 0.1 (0-0.6) 10^3/ul Absolute Basos (auto) 0 (0-0.2) 10^3/ul Absolute Nucleated RBC 0 10^3/ul Nucleated RBC % 0 Sodium 137 L (139-145) mmol/L Potassium 4.6 (3.5-5.0) mmol/L Chloride 104 (101-111) mmol/L Carbon Dioxide 25 (22-32) mmol/L Anion Gap 8 (2-11) mmol/L BUN 17 (6-24) mg/dL Creatinine 1.31 H (0.67-1.17) mg/dL Est GFR ( Amer) 69.4 (>60) Est GFR (Non-Af Amer) 53.9 (>60) BUN/Creatinine Ratio 13.0 (8-20) Glucose 120 H (70-100) mg/dL Calcium 7.9 L (8.6-10.3) mg/dL Total Bilirubin 0.40 (0.2-1.0) mg/dL AST 18 (13-39) U/L ALT 14 (7-52) U/L Alkaline Phosphatase 275 H (34-104) U/L Ammonia 35 (16-53) mcmol/L Total Protein 6.2 L (6.4-8.9) g/dL Albumin 2.6 L (3.2-5.2) g/dL Globulin 3.6 (2-4) g/dL Albumin/Globulin Ratio 0.7 L (1-3) TSH 4.54 (0.34-5.60) mcIU/mL Urine Color Urine Appearance Urine pH (5-9) Ur Specific [place] (1.010-1.030) Urine Protein (Negative) Urine Ketones (Negative) Urine Blood (Negative) Urine Nitrate (Negative) Urine Bilirubin (Negative) Urine Urobilinogen (Negative) Ur Leukocyte Esterase (Negative) Urine WBC (Auto) (Absent) Urine RBC (Auto) (Absent) Calcium Oxalate Crystal (Absent) Urine Bacteria (Absent) Hyaline Casts (Absent) Urine Glucose (Negative) Urine Ascorbic Acid (Negative) 01/27/18 Range/Units 02:25 WBC (3.5-10.8) 10^3/ul RBC (4.0-5.4) 10^6/ul Hgb (14.0-18.0) g/dl Hct (42-52) % MCV (80-94) fL MCH (27-31) pg MCHC (31-36) g/dl RDW (10.5-15) % Plt Count (150-450) 10^3/ul MPV (7.4-10.4) um3 Neut % (Auto) (38-83) % Lymph % (Auto) (25-47) % [place] % (Auto) (0-7) % Eos % (Auto) (0-6) % Baso % (Auto) (0-2) % Absolute Neuts (auto) (1.5-7.7) 10^3/ul Absolute Lymphs (auto) (1.0-4.8) 10^3/ul Absolute Monos (auto) (0-0.8) 10^3/ul Absolute Eos (auto) (0-0.6) 10^3/ul Absolute Basos (auto) (0-0.2) 10^3/ul Absolute Nucleated RBC 10^3/ul Nucleated RBC % Sodium (139-145) mmol/L Potassium (3.5-5.0) mmol/L Chloride (101-111) mmol/L Carbon Dioxide (22-32) mmol/L Anion Gap (2-11) mmol/L BUN (6-24) mg/dL Creatinine (0.67-1.17) mg/dL Est GFR ( Amer) (>60) Est GFR (Non-Af Amer) (>60) BUN/Creatinine Ratio (8-20) Glucose (70-100) mg/dL Calcium (8.6-10.3) mg/dL Total Bilirubin (0.2-1.0) mg/dL AST (13-39) U/L ALT (7-52) U/L Alkaline Phosphatase (34-104) U/L Ammonia (16-53) mcmol/L Total Protein (6.4-8.9) g/dL Albumin (3.2-5.2) g/dL Globulin (2-4) g/dL Albumin/Globulin Ratio (1-3) TSH (0.34-5.60) mcIU/mL Urine Color [place] Urine Appearance Cloudy Urine pH 5.0 (5-9) Ur Specific [place] 1.017 (1.010-1.030) Urine Protein 1+(30 mg/dl) A (Negative) Urine Ketones Trace A (Negative) Urine Blood 1+ A (Negative) Urine Nitrate Negative (Negative) Urine Bilirubin Negative (Negative) Urine Urobilinogen Positive A (Negative) Ur Leukocyte Esterase 2+ A (Negative) Urine WBC (Auto) 3+(>20/hpf) A (Absent) Urine RBC (Auto) 3+(>10/hpf) A (Absent) Calcium Oxalate Crystal Present A (Absent) Urine Bacteria 1+ A (Absent) Hyaline Casts Present A (Absent) Urine Glucose Negative (Negative) Urine Ascorbic Acid * A (Negative) Microbiology and Other Data: Microbiology 01/27/18 05:11 Aerobic Blood Culture - Preliminary Blood Venous No Growth Day 1 Anaerobic Blood Culture - Preliminary No Growth Day 1 01/27/18 04:01 Aerobic Blood Culture - Preliminary Blood Venous No Growth Day 1 Anaerobic Blood Culture - Preliminary No Growth Day 1 01/27/18 19:00 Stool Occult Blood (CAROLEE) - Final Stool Assess/Plan/Problems-Billing Assessment: - Patient Problems (1) Atrial fibrillation Current Visit: No Status: Acute Code(s): I48.91 - UNSPECIFIED ATRIAL FIBRILLATION SNOMED Code(s): 07668902 Comment: S/P ablation 08/17/15 in [place]. Continue digoxin. Reduce diltiazem CD to 180 mg daily start 01/28. No AC due to GI bleeding. (2) Cirrhosis Current Visit: No Status: Acute Comment: Cryptogenic/COLLADO. Varices banded at [facility]. Start omeprazole 01/27. Dr. Beavers to see regarding fup EGD. Resume furosemide 20 mg daily 01/28. KCL 10 meq tid. (3) Iron deficiency anemia Current Visit: No Status: Acute Code(s): D50.9 - IRON DEFICIENCY ANEMIA, UNSPECIFIED SNOMED Code(s): 95175760 Comment: Still anemic and hypochromic on oral iron. One dose IV iron sucrose 01/27. Addon soluble transferrin receptor pending. (4) UTI (urinary tract infection) Current Visit: No Status: Acute Comment: Urine growing Pseudomonas sp, ID pending 01/28. Change to IV cipro. (5) Urinary retention Current Visit: Yes Status: Acute Code(s): R33.9 - RETENTION OF URINE, UNSPECIFIED SNOMED Code(s): 815842401 Comment: Serrano in place. (6) Scrotal hernia Current Visit: No Status: Acute Code(s): K40.90 - UNIL INGUINAL HERNIA, W/O OBST OR GANGR, NOT SPCF RECUR SNOMED Code(s): 84983900 Comment: Massive hernia with loss of domain. Not a surgical candidate. (7) Pulmonary embolism Current Visit: No Status: Acute Code(s): I26.99 - OTHER PULMONARY EMBOLISM WITHOUT ACUTE COR PULMONALE SNOMED Code(s): 39900772 Comment: Present in 2014. No AC due to GI bleeding, (8) Weakness Current Visit: Yes Status: Acute Code(s): R53.1 - WEAKNESS SNOMED Code(s) : 90751943 Comment: I think his massive scrotal hernia has impaired his ability to walk and the reusltant inactivity has worsened his situation over the past year. Needs STR.
[2018-01-28] MEDS: Furosemide TAB* 20 MG PO SCH (15:16)
[2018-01-28] MEDS: Ciprofloxacin 400MG IVPREMIX(* 400 MG/200 ML BAG IVPB SCH (15:16)
[2018-01-28] MEDS: Potassium Chloride LIQUID* 20 MEQ PACKET PO SCH ×2 (15:16→21:11)
[2018-01-29] MEDS: Ciprofloxacin 400MG IVPREMIX(* 400 MG/200 ML BAG IVPB SCH ×2 (02:24→15:07)
[2018-01-29] MEDS: Heparin VIAL(*) 5000 UNITS/ML VIAL (FIVE THOUSAND) SUBCUT SCH ×3 (05:52→21:17)
[2018-01-29] MEDS ORDERED: Acetaminophen TAB* 325 MG PO PRN (06:24)
[2018-01-29] MEDS: Oxybutynin XL TAB* 5 MG PO SCH (08:16)
[2018-01-29] MEDS: Furosemide TAB* 20 MG PO SCH (08:16)
[2018-01-29] MEDS: Ferrous Sulfate TAB* 325 MG PO SCH (08:16)
[2018-01-29] MEDS: Diltiazem CD CAP* 180 MG PO SCH (08:16)
[2018-01-29] MEDS: Digoxin TAB* 0.125 MG PO SCH (08:16)
[2018-01-29] MEDS: Potassium Chlor TAB* 10 MEQ TAB.ER PO SCH ×3 (08:16→20:08)
[2018-01-29] MEDS: Omeprazole CAP* 20 MG PO SCH (08:16)
[2018-01-29] MEDS: Metoprolol Tartrate TAB* 50 mg PO SCH ×2 (08:16→20:08)
[2018-01-29 10:37] LABS: Hematocrit 30 % (42-52); Hemoglobin 9.3 g/dl (14.0-18.0); Mean Corpuscular HGB Conc 31 g/dl (31-36); Mean Corpuscular Hemoglobin 20 pg (27-31); Mean Corpuscular Volume 66 fL (80-94); Mean Platelet Volume 8.6 um3 (7.4-10.4); Platelet Count 484 10^3/ul (150-450); Red Blood Count 4.57 10^6/ul (4.0-5.4); Red Cell Distribution Width 23 % (10.5-15)
[2018-01-29 10:41] LABS: INR 1.09 (0.77-1.02)
[2018-01-29 10:54] LABS: ABS Basophils 0.2 10^3/ul (0-0.2); ABS Eosinophils 0.1 10^3/ul (0-0.6); ABS Lymphocytes 0.8 10^3/ul (1.0-4.8); ABS Monocytes 0.8 10^3/ul (0-0.8); ABS Nucleated RBC 0 10^3/ul; Eosinophil % 0.9 % (0-6); Lymphocyte % 6.5 % (25-47); Nucleated Red Blood Cells % 0
[2018-01-29 10:55] LABS: EGFR Non-African American 60.9 (>60)
--- NOTE | 2018-01-29 18:19 | PN ---
Hospitalist Progress Note Date of Service: 01/29/18 Pt seen and examined. Meds and labs reviewed. ROS: Denied CARDOZA/dizziness, F/C, N/V, CP, SOB, increased cough, sputum production , abd pain, diarrhea, constipation, dysuria, myalgias, arthralgias, throat pain , and new skin lesions. The rest of the 14 point ROS are unremarkable. PHYSICAL EXAM: GEN APPEARANCE: Awake, not in acute distress HEENT: NC/AT, PERRLA, moist oral mucosa, (-) throat erythema NECK: Soft, supple, (-) cervical LAD, (-)JVD HEART: S1S2 WNL, RRR, No MRG CHEST: CTA, BL, GAE, No W/R/R ABD: Soft, ND/NT, NABS 4x Q EXT: No C/C/E SKIN: Warm to touch PSYCH: No active psychosis, hallucinations, depression, SI/HI ASSESSMENT AND PLAN: #Atrial fibrillation, S/P ablation 08/17/15 in [place]: -Continue digoxin and diltiazem CD. -No AC due to GI bleeding likely due to portal gastropathy #Cirrhosis, MELD =9: - Cryptogenic/COLLADO. Varices banded at [facility]. -Start omeprazole 01/27. #Iron deficiency anemia: -Still anemic and hypochromic on oral iron # UTI (urinary tract infection): -Urine growing Pseudomonas sp, ID pending 01/28. Change to IV cipro. #Urinary retention: -Serrano in place. #Scrotal hernia: -Massive hernia with loss of domain. Not a surgical candidate. #Pulmonary embolism, history of: -No AC due to GI bleeding #Dispo: -For STR placement and possible transition to LTC -Awaiting hospice consult to determine possible eligibility
[2018-01-29] MEDS ORDERED: CMCS:Melatonin (NF) 3 MG TAB PO PRN (20:38)
[2018-01-30] MEDS: Ciprofloxacin 400MG IVPREMIX(* 400 MG/200 ML BAG IVPB SCH (02:38)
[2018-01-30] MEDS: Heparin VIAL(*) 5000 UNITS/ML VIAL (FIVE THOUSAND) SUBCUT SCH ×2 (05:37→12:52)
[2018-01-30] MEDS: Oxybutynin XL TAB* 5 MG PO SCH (08:40)
[2018-01-30] MEDS: Ferrous Sulfate TAB* 325 MG PO SCH (08:40)
[2018-01-30] MEDS: Diltiazem CD CAP* 180 MG PO SCH (08:40)
[2018-01-30] MEDS: Digoxin TAB* 0.125 MG PO SCH (08:40)
[2018-01-30] MEDS: Potassium Chlor TAB* 10 MEQ TAB.ER PO SCH ×2 (08:41→12:52)
[2018-01-30] MEDS: Omeprazole CAP* 20 MG PO SCH (08:41)
[2018-01-30] MEDS: Metoprolol Tartrate TAB* 50 mg PO SCH (08:41)
[2018-01-30] MEDS: Furosemide TAB* 20 MG PO SCH (08:41)
[2018-01-30 11:10] VITALS: BP 115/59
[2018-01-30] MEDS ORDERED: Ondansetron 40 MG VIAL* 2 MG/ML 20 ML VIAL IV PRN (12:45)
--- NOTE | 2018-01-30 13:07 | CONSULT ---
Palliative / Hospice Consult Ordering Provider: David Fontanez Referal Reason: Consideration for hospice services. - Subjective Code Status: DNR Advance Directives Location: In Chart MOLST Part A Completed: Yes - DNR Date: 01/30/18 MOLST Part E Completed:: Yes - DNI, comfort measures only Date: 01/30/18 HCP Completed: Yes - - History or Present Illness History or Present Illness: This 72 year old man was admitted 3 days ago after a fall attributed to weakness and fatigue that had been progressive over a few weeks, and has been found to have Pseudomonas UTI and cellulitis here. He is improving with IV antibiotics. He also has a large inoperable right inguinal hernia that has necessitated chronic indwelling Serrano. He has COLLADO, with cirrhosis diagnosed only 4 months ago, and has portal hypertension causing ascites (and probably contributing to large inguinal hernia), and esophageal varices, although his LFTs have been fine. He has had esophageal banding x 2, but has not had consideration for TIPS procedure. He has chronic iron-deficiency anemia assessed by Dr. Beavers as likely not due to esophageal variceal bleeding, and unlikely to be successfully evaluated below the duodenum because of his large hernia. Dr. Beavers recommends continuing IV iron infusions, if these are successful in improving his anemia. The patient also has CHF and history of AF, as well as a PE, but is unable to be anticoagulated due to his occult blood loss. His last EF was 35%. He has had 2 UTI's, since October of this year, although he has had an indwelling Serrano for several years. He has the Serrano replaced monthly by Dr. Mcconnell. 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 She has been unable to manage all his care herself. The patient has been DNR/DNI for quite some time. He has often stated to his PCP, Dr. Chinchilla, that he would like to avoid interventions and he feels he has had a good and long life. Both he and his would now like to consider hospice for end-of- life care and hope this will enable him to remain at home. He was ambulating independently with a walker prior to this admission. Lab Values: Abnormal Lab Results 01/29/18 01/30/18 01/30/18 10:19 05:49 05:49 Hem Pathologist Commnt Iron 28 L Ferritin 676.6 H Folate 11.51 Laboratory Last Values WBC 13.0 10^3/ul (3.5-10.8) H 01/29/18 10:19 RBC 4.57 10^6/ul (4.0-5.4) 01/29/18 10:19 Hgb 9.3 g/dl (14.0-18.0) L 01/29/18 10:19 Hct 30 % (42-52) L 01/29/18 10:19 MCV 66 fL (80-94) L 01/29/18 10:19 MCH 20 pg (27-31) L 01/29/18 10:19 MCHC 31 g/dl (31-36) 01/29/18 10:19 RDW 23 % (10.5-15) H 01/29/18 10:19 Plt Count 484 10^3/ul (150-450) H 01/29/18 10:19 MPV 8.6 um3 (7.4-10.4) 01/29/18 10:19 Neut % (Auto) 84.9 % (38-83) H 01/29/18 10:19 Lymph % (Auto) 6.5 % (25-47) L 01/29/18 10:19 Gonzales % (Auto) 6.1 % (0-7) 01/29/18 10:19 Eos % (Auto) 0.9 % (0-6) 01/29/18 10:19 Baso % (Auto) 1.6 % (0-2) 01/29/18 10:19 Absolute Neuts (auto) 11.0 10^3/ul (1.5-7.7) H 01/29/18 10:19 Absolute Lymphs (auto) 0.8 10^3/ul (1.0-4.8) L 01/29/18 10:19 Absolute Monos (auto) 0.8 10^3/ul (0-0.8) 01/29/18 10:19 Absolute Eos (auto) 0.1 10^3/ul (0-0.6) 01/29/18 10:19 Absolute Basos (auto) 0.2 10^3/ul (0-0.2) 01/29/18 10:19 Absolute Nucleated RBC 0 10^3/ul 01/29/18 10:19 Nucleated RBC % 0 01/29/18 10:19 Microcytosis 2+ 01/29/18 10:19 Hem Pathologist Commnt 01/29/18 10:19 INR (Anticoag Therapy) 1.09 (0.77-1.02) H 01/29/18 10:19 Sodium 135 mmol/L (139-145) L 01/29/18 10:19 Potassium 3.7 mmol/L (3.5-5.0) 01/29/18 10:19 Chloride 105 mmol/L (101-111) 01/29/18 10:19 Carbon Dioxide 23 mmol/L (22-32) 01/29/18 10:19 Anion Gap 7 mmol/L (2-11) 01/29/18 10:19 BUN 13 mg/dL (6-24) 01/29/18 10:19 Creatinine 1.18 mg/dL (0.67-1.17) H 01/29/18 10:19 Est GFR ( Amer) 78.3 (>60) 01/29/18 10:19 Est GFR (Non-Af Amer) 60.9 (>60) 01/29/18 10:19 BUN/Creatinine Ratio 11.0 (8-20) 01/29/18 10:19 Glucose 120 mg/dL (70-100) H 01/29/18 10:19 Calcium 7.8 mg/dL (8.6-10.3) L 01/29/18 10:19 Magnesium 1.4 mg/dL (1.9-2.7) L 01/29/18 10:19 Iron 28 ug/dL (50-212) L 01/30/18 05:49 Nancy Transferrin Receptr 6.6 mg/L (1.8 - 4.6) H 01/27/18 05:11 Ferritin 676.6 ng/mL (24-336) H 01/30/18 05:49 Total Bilirubin 0.50 mg/dL (0.2-1.0) 01/29/18 10:19 AST 23 U/L (13-39) 01/29/18 10:19 ALT 18 U/L (7-52) 01/29/18 10:19 Alkaline Phosphatase 329 U/L (34-104) H 01/29/18 10:19 Ammonia 35 mcmol/L (16-53) 01/27/18 02:21 C-Reactive Protein 74.49 mg/L (< 5.00) H 01/27/18 01:50 Total Protein 6.3 g/dL (6.4-8.9) L 01/29/18 10:19 Albumin 2.7 g/dL (3.2-5.2) L 01/29/18 10:19 Globulin 3.6 g/dL (2-4) 01/29/18 10:19 Albumin/Globulin Ratio 0.8 (1-3) L 01/29/18 10:19 Folate 11.51 ng/mL (>3.99) 01/30/18 05:49 TSH 4.54 mcIU/mL (0.34-5.60) 01/27/18 01:50 Urine Color [place] 01/27/18 02:25 Urine Appearance Cloudy 01/27/18 02:25 Urine pH 5.0 (5-9) 01/27/18 02:25 Ur Specific [place] 1.017 (1.010-1.030) 01/27/18 02:25 Urine Protein 1+(30 mg/dl) (Negative) A 01/27/18 02:25 Urine Ketones Trace (Negative) A 01/27/18 02:25 Urine Blood 1+ (Negative) A 01/27/18 02:25 Urine Nitrate Negative (Negative) 01/27/18 02:25 Urine Bilirubin Negative (Negative) 01/27/18 02:25 Urine Urobilinogen Positive (Negative) A 01/27/18 02:25 Ur Leukocyte Esterase 2+ (Negative) A 01/27/18 02:25 Urine WBC (Auto) 3+(>20/hpf) (Absent) A 01/27/18 02:25 Urine RBC (Auto) 3+(>10/hpf) (Absent) A 01/27/18 02:25 Calcium Oxalate Crystal Present (Absent) A 01/27/18 02:25 Urine Bacteria 1+ (Absent) A 01/27/18 02:25 Hyaline Casts Present (Absent) A 01/27/18 02:25 Urine Glucose Negative (Negative) 01/27/18 02:25 Urine Ascorbic Acid * (Negative) A 01/27/18 02:25 Digoxin 0.6 ng/ml (0.8-2.0) L 01/27/18 01:50 - Objective Active Medications: Acetaminophen (Tylenol Tab*) 650 mg PO Q6H PRN PRN Reason: FEVER/PAIN Last Admin: 01/29/18 06:40 Dose: 650 mg Digoxin (Lanoxin Tab*) 0.125 mg PO DAILY [facility] Last Admin: 01/30/18 08:40 Dose: 0.125 mg Diltiazem HCl (Cardizem Cd Cap*) 180 mg PO DAILY [facility] Last Admin: 01/30/18 08:40 Dose: 180 mg Ferrous Sulfate (Ferrous Sulfate Tab*) 325 mg PO DAILY [facility] Last Admin: 01/30/18 08:40 Dose: 325 mg Furosemide (Lasix Tab*) 20 mg PO DAILY [facility] Last Admin: 01/30/18 08:41 Dose: 20 mg Heparin Sodium (Porcine) (Heparin Vial(*)) 5,000 units SUBCUT Q8HR [facility] Last Admin: 01/30/18 05:37 Dose: 5,000 units Ciprofloxacin/Dextrose (Cipro 400 Mg Ivpremix(*)) 400 mg in 200 mls @ 200 mls/ hr IVPB Q12H [facility] Last Admin: 01/30/18 02:38 Dose: 200 mls/hr Melatonin (Melatonin (Nf)) 3 mg PO BEDTIME PRN; Protocol PRN Reason: Sleep Last Admin: 01/29/18 23:38 Dose: 3 mg Metoprolol Tartrate (Lopressor Tab*) 50 mg PO BID [facility] Last Admin: 01/30/18 08:41 Dose: 50 mg Omeprazole (Prilosec Cap*) 20 mg PO DAILY@0730 [facility] Last Admin: 01/30/18 08:41 Dose: 20 mg Ondansetron HCl (Zofran 40 Mg Vial*) 4 mg IV Q6H PRN PRN Reason: NAUSEA Oxybutynin Chloride (Ditropan Xl Tab*) 10 mg PO DAILY [facility] Last Admin: 01/30/18 08:40 Dose: 10 mg Potassium Chloride (Klor Con Er Tab*) 10 meq PO TID [facility] Last Admin: 01/30/18 08:41 Dose: 10 meq Vital Signs: Vital Signs: Temp Pulse Resp BP Pulse Ox 98.6 F 80 22 115/59 98 01/30/18 07:30 01/30/18 08:40 05/18/18 08:00 01/30/18 07:30 01/30/18 07:30 Patient Weight: Weight 195 lb 9.6 oz Intake and Output: Intake & Output 01/28/18 01/29/18 01/30/18 01/31/18 06:59 06:59 06:59 06:59 Intake Total 145 405 9270 580 Output Total 2200 950 1075 Balance -1320 -280 235 580 Intake: IV Fluids 200 200 ABX - CEFTRIAXONE 200 ABX - CIPROFLOXACIN 200 IVPB 200 ABX - CIPROFLOXACIN 200 Oral 880 470 910 580 Output: Urine 200 Serrano 2200 950 875 Other: Estimated Void Small # Bowel Movements 1 0 0 1 Estimated Stool Amount Large Medium Large ADLs: Meal Record Start: 01/27/18 04: 11 Freq: DAILY@0900,1400,1800 Status: Active Protocol: Created 01/27/18 04:11 System (Rec: 01/27/18 04:11 System MEDL-C01) Document 01/27/18 09:00 [id number] (Rec: 01/27/18 09:59 [id number] MED-C02) Document 01/27/18 14:00 [id number] (Rec: 01/27/18 14:10 [id number] MED-C02) Document 01/28/18 09:00 [id number] (Rec: 01/28/18 09:38 [id number] MED-C09) Document 01/28/18 14:00 [id number] (Rec: 01/28/18 14:22 [id number] MED-M01) Document 01/28/18 18:00 [id number] (Rec: 01/28/18 18:07 [id number] MED-C11) Document 01/29/18 09:00 [id number] (Rec: 01/29/18 12:18 [id number] MED-C09) Document 01/29/18 14:00 [id number] (Rec: 01/29/18 14:25 [id number] MED-C09) Document 01/29/18 18:00 [id number] (Rec: 01/29/18 18:09 [id number] MED-C09) Document 01/30/18 09:00 [id number] (Rec: 01/30/18 09:48 [id number] MED-C09) Intake and Output Start: 01/27/18 04: 11 Freq: DAILY@0600,1400,2200 Status: Active Protocol: Created 01/27/18 04:11 System (Rec: 01/27/18 04:11 System MEDL-C01) Document 01/27/18 06:00 [id number] (Rec: 01/27/18 06:17 [id number] MED-C09) Document 01/27/18 14:00 [id number] (Rec: 01/27/18 14:10 [id number] MED-C02) Document 01/27/18 20:42 [id number] (Rec: 01/27/18 20:42 [id number] MED-C02) Document 01/28/18 05:40 [id number] (Rec: 01/28/18 05:45 [id number] MED-C09) Document 01/28/18 14:00 [id number] (Rec: 01/28/18 14:22 [id number] MED-M01) Document 01/28/18 19:29 [id number] (Rec: 01/28/18 19:30 [id number] MED-M02) Document 01/29/18 04:54 [id number] (Rec: 01/29/18 04:54 [id number] MED-C09) Document 01/29/18 14:00 [id number] (Rec: 01/29/18 14:25 [id number] MED-C09) Document 01/30/18 05:49 [id number] (Rec: 01/30/18 05:50 [id number] MEDL-C01) Document 01/30/18 09:49 [id number] (Rec: 01/30/18 09:50 [id number] MED-C09) General Impression: Pleasant, articulate man in NAD lying in bed Head: Symmetrical Eyes: No Scleral Icterus Neck: NL Appearance and Movements; NL JVP, Trachea Midline Cardiovascular: RRR, - - PMI displaced cephalad to 3rd intercostal space and lateral Respiratory: Symmetrical Chest Expansion and Respiratory Effort Abdominal: - - very distended, soft, not tender. massive right scrotal hernia with bandage on it. Extremities: No Clubbing, Cyanosis, - - Tr edema, wrinkled lower legs Neurological: Alert and Oriented x 3, NL Sensation - Assessment Assessment: This patient has severe portal hypertension with consequences that are life- limiting. He also has severe congestive heart failure which will contribute to his limited prognosis. He very much wants to avoid future hospitalizations and interventions. He is appropriate for hospice services on the basis of his primary diagnosis of liver cirrhosis and a secondary diagnosis of CHF. He will be discharged to [facility] for short term rehab, and when he returns home after that stay, he should be referred to hospice, If he is unable to return home, e.g. if he is unable to ambulate, etc., he would still be eligible for hospice services in another residential setting. I spoke with both Dr. Chinchilla and Dr. beavers and they are in agreement with this plan. We may still look into TIPS procedure while the patient is on hospice, particularly if his nutritional status improves (albumin has dropped from 3.8 to 2.7 over the past months). - Plan Consult Plan (MU): Hospice - Time On Unit Date of Evaluation: 01/30/18 Hospice Consult Time in: 10:30 Hospice Consult Time Out: 11:30 Hospice Consult Time Total: 60 > 50% of Time Spend In Counseling or Coordinating Care: Yes
--- NOTE | 2018-01-30 14:55 | DS ---
CC: Dr. Presley; Dr. Chinchilla DATE OF ADMISSION: 01/27/2018. DATE OF DISCHARGE: 01/30/2018. DISCHARGE DIAGNOSES: 1. Atrial fibrillation, status post ablation on 08/17/2015. 2. Cirrhosis with MELD score of 9. 3. Iron deficiency anemia. 4. UTI and possible cellulitis on admission. 5. History of scrotal hernia, not a surgical candidate. 6. History of pulmonary embolism. HISTORY OF PRESENT ILLNESS/HOSPITAL COURSE: The patient is a 72-year-old, gentleman with a history of COLLADO, atrial fibrillation, cirrhosis, and hypertension who has been feeling unwell a few days prior to his admission on . He mentioned that he had some intermittent nausea and some vomiting, and was subsequently diagnosed clinically with possible cellulitis of the lower extremities as well as UTI. The patient was then initially placed on Ciprofloxacin and as per patient observation, the swelling and the warmth and redness of his lower extremity has subsided, although he does have some chronic pain issues. Although there has been some question of whether he did or did not have cellulitis. What is not controversial, however, is the fact that he has also been diagnosed with possible UTI causing his symptoms, although he does have a chronic indwelling Serrano catheter due to his large inoperable right inguinal hernia. He has been advised to continue with his medications to a total of a 14 day treatment therapy and this has been prescribed for him. During his hospitalization, he requested that he be evaluated by hospice given his multiple comorbidities and mentioned that he would like to focus more on the quality of life. Dr. Presley has seen the patient who discussed hospice care at length with the family. However, the and the patient at bedside did not want to be placed and discharged on hospice quite yet since they feel like they would like to talk to Dr. Beavers regarding his plan about his esophageal variceal bleeding and a possible re-evaluation. I have communicated the above with the care plan team who then informed me that he has a place at [facility] for short-term rehab. The patient had been advised to follow-up with his PCP within three days to one week post DC and/or with his short-term rehab facility medical personnel. He has also been advised to take his medications as prescribed and to follow-up with Dr. Presley in the outpatient once their concerns about his ambulation has been addressed by rehab. PHYSICAL EXAMINATION: Reveals the most recent vital signs of record with vital signs of blood pressure of 115/59, 98 percent saturation, 20 per minute respiratory rate, 80 beats per minute heart rate. General appearance: The patient is awake, oriented times three, not in acute distress. HEENT: Normocephalic, atraumatic. PERRLA. Extraocular muscles intact. Negative for icterus. Moist oral mucosa. Negative throat erythema. Neck: Soft, supple with no cervical lymphadenopathy, no JVD. Heart: S1, S2 within normal limits. Regular rate and rhythm. No murmurs, rubs or gallops. Chest: Clear to auscultation bilaterally. Good air entry. No wheezes, rales, or rhonchi. Abdomen: Soft, nondistended, nontender. Normal active bowel sounds times four. Extremities: No cyanosis or clubbing with 1+ bilateral lower extremity edema with chronic venous stasis changes. Psychiatric: No active psychosis, depression, suicidal nor homicidal ideation. Skin: Warm to touch. DISCHARGE MEDICATIONS: 1. Tylenol 650 p.o. q.6 prn. 2. Digoxin 125 mcg p.o. daily. 3. Diltiazem 180 mg p.o. daily. 4. Ferrous Sulfate 325 mg p.o. daily. 5. Melatonin 3 mg p.o. at bedtime. 6. Metoprolol Tartrate 50 mg p.o. b.i.d. 7. Potassium Chloride tablet 10 mEq p.o. t.i.d. 8. Ciprofloxacin 500 mg p.o. b.i.d. for 12 more days. 9. Lactobacillus Acidophilus one cap p.o. daily for 15 days. 10. Omeprazole 20 mg p.o. daily. 11. Ondansetron 4 mg p.o. q.i.d. 12. Oxybutynin 10 mg p.o. daily. The total time spent evaluating patient, reviewing pertinent data and appropriate documentation is greater than 30 minutes. [id number]/CPS #: [id number] [facility]
== END 2018-01-30 16:30 | DRG 690 ==
LOC: ED 01:37 → MED 03:29
PROVIDERS: ADMIT Pediatrics; ATTEND Student in an Organized Health Care Education/Training Program
DX: N39.0 Urinary tract infection, site not specified (principal); L03.116 Cellulitis of left lower limb; R18.8 Other ascites; L03.115 Cellulitis of right lower limb; K76.6 Portal hypertension; I85.10 Secondary esophageal varices without bleeding; K75.81 Nonalcoholic steatohepatitis (NASH); K74.60 Unspecified cirrhosis of liver; D50.9 Iron deficiency anemia, unspecified; K40.90 Unilateral inguinal hernia, without obstruction or gangrene, not specified as recurrent; I48.91 Unspecified atrial fibrillation; I11.0 Hypertensive heart disease with heart failure; I50.9 Heart failure, unspecified; F32.9 Major depressive disorder, single episode, unspecified; R33.9 Retention of urine, unspecified; Z66 Do not resuscitate; B96.5 Pseudomonas (aeruginosa) (mallei) (pseudomallei) as the cause of diseases classified elsewhere; Z87.440 Personal history of urinary (tract) infections; Z86.711 Personal history of pulmonary embolism; Z82.49 Family history of ischemic heart disease and other diseases of the circulatory system; Z80.49 Family history of malignant neoplasm of other genital organs; Z87.891 Personal history of nicotine dependence; Z72.820 Sleep deprivation
CPT/HCPCS: 36415; 71045; 74019; 76705; 80053; 80162; 81003; 81015; 82140; 82270; 82608; 82728; 82746; 83540; 83735; 84238; 84443; 85025; 85060; 85610; 86140; 87040; 87077; 87086; 87186; 93005; 99284; A9270-GY; G8978-GP-CM; G8979-GP-CI; G8987-GO-CM; G8988-GO-CJ; J0696; J0744; J1644; J1756; J1940; J3370

== ENCOUNTER → 2018-03-05 11:16 | Emergency (ER) | payer MEDICARE ==
--- OUTSIDE RECORDS SUMMARY | 2018-03-05 11:30 | XMS REPORT ---
:1945 External Reference #:[id number] Author Organization [employer] Address [address] [place] [address] Phone [phone] Care Team Providers Name Role Phone Bertram Chinchilla DO Primary Care Physician Unavailable Payers Type Date Identification Numbers Payment Provider Subscriber Medicare Primary Policy Number: [id number] Medicare Olaf Forrest PayID: [id number] [address] [place] [address] [facility] Part B Policy Number: [id number] [facility] Olaf Forrest PayID: [id number] [address] [place] [address] Problems Description No Information Family History Date Family Member(s) Problem(s) Comments Father due to CHF () Mother due to Cancer () Mother Cancer Siblings 2 Siblings no known cardiac issues Social History Type Date Description Comments Marital Status Lives With Lives at [facility] Occupation Retired ETOH Use Rarely consumes alcohol Smoking Patient is a former smoker Recreational Drug Use Denies Drug Use Smoking quit approx 1979 Daily Caffeine Consumes on average 1 cup of regular coffee per day Exercise Type/Frequency Exercises regularly Exercise Type/Frequency daily ADL's only Allergies, Adverse Reactions, Alerts Date Description Reaction Status Severity Comments 11/06/2015 NKDA active Medications Medication Date Status Form Strength Qnty SIG Indications Ordering Provider Whitney WHEATLEY Active Caps ER 240mg 90caps take 1 cap I48.91 Qutaybeh 017 24HR by mouth S. daily Jonelle Snadra Ferrous Active Tablets 325(65Fe) 1 by mouth Unknown Sulfate 000 mg daily Furosemide Active Tablets 20mg 1 by mouth Unknown 000 every day Digoxin Active Tablets 125mcg 1 by mouth Unknown 000 every day Metoprolol Active Tablets 50mg 120tab take two Qutaybeh Tartrate 000 s tablets S. daily Jonelle Sandra Zolpidem Active Tablets 5mg take 1 Unknown Tartrate 000 tablet by mouth at bedtime as needed -- maximum daily dose of 1 per day Oxybutynin Active Tablets 10mg 1 by mouth Unknown Chloride ER 000 ER 24HR every day Ondansetron Active Tablets 4mg one by Unknown HCL 000 mouth every 8 hours as needed for nausea Metoprolol Hx Tablets 100mg 60tabs tablet by Qutaybeh Tartrate 017 - mouth S. b.i.d Fanny Sandra M.D. Cartia XT Hx Caps ER 180mg 30caps 1 by mouth Qutaybeh 016 - 24HR every day S. Fanny Sandra M.D. Losartan Hx Tablets 25mg 1 by mouth Unknown Potassium 000 - every day 016 Metoprolol Hx Tablets 25mg 1 by mouth Unknown Succinate ER 000 - ER 24HR every day 016 Xarelto Hx Tablets 20mg 1 by mouth Unknown 000 - every day 016 Warfarin Hx Tablets as Unknown Sodium 000 - directed 018 Diltiazem HCL Hx Tablets 60mg one tablet Unknown 000 - by mouth 4x per 016 day(at meals and at bedtime) Metoprolol Hx Tablets 50mg 180tab 2 by mouth Qutaybeh Tartrate 000 - s twice a S. day Fanny Sandra M.D. Cartia XT Hx Caps ER 120mg 1 by mouth Unknown 000 - 24HR every day 016 Vital Signs Date Vital Result Comment 03/05/2018 Heart Rate 72 /min BP Systolic Sitting 102 mmHg BP Diastolic Sitting 70 mmHg Respiratory Rate 18 /min Body Temperature 97.8 F 12/26/2017 Height 67 inches 5'7" Weight 192.00 lb w/shoes Heart Rate 96 /min BP Systolic Sitting 128 mmHg LA reg cuff BP Diastolic Sitting 68 mmHg LA reg cuff BMI (Body Mass Index) 30.1 kg/m2 Ejection Fraction 55-60% Issac 12/04/16 03/31/2017 Height 67 inches 5'7" Weight 224.00 lb Heart Rate 68 /min BP Systolic Sitting 140 mmHg Ra reg cuff BP Diastolic Sitting 74 mmHg Ra reg cuff BMI (Body Mass Index) 35.1 kg/m2 Ejection Fraction 55% - 60% Issac 12/04/16 11/04/2016 Height 67 inches 5'7" Weight 223.50 lb with shoes Heart Rate 102 /min BP Systolic Sitting 132 mmHg LA lrg cuff BP Diastolic Sitting 92 mmHg LA lrg cuff BMI (Body Mass Index) 35.0 kg/m2 Ejection Fraction 55% - 60% Issac 09/25/16 09/30/2016 Height 67 inches 5'7" Weight 226.00 lb with shoes Heart Rate 106 /min BP Systolic Sitting 140 mmHg LA reg cuff BP Diastolic Sitting 86 mmHg LA reg cuff BMI (Body Mass Index) 35.4 kg/m2 Ejection Fraction 55% - 60% Issac 09/25/16 09/02/2016 Height 67 inches 5'7" Weight 226.75 lb with shoes Heart Rate 97 /min BP Systolic Sitting 142 mmHg LA reg cuff BP Diastolic Sitting 94 mmHg LA reg cuff BMI (Body Mass Index) 35.5 kg/m2 Ejection Fraction 55%-60% echo 08/19/16 07/15/2016 Height 67 inches 5'7" Weight 221.00 lb w/shoes Heart Rate 74 /min BP Systolic Sitting 138 mmHg LA reg cuff BP Diastolic Sitting 88 mmHg LA reg cuff BMI (Body Mass Index) 34.6 kg/m2 Ejection Fraction 60-65% Echo 06/06/16 12/26/2015 Height 67 inches 5'7" Weight 208.75 lb Heart Rate 80 /min BP Systolic Sitting 170 mmHg LA, reg BP Diastolic Sitting 84 mmHg LA, reg BMI (Body Mass Index) 32.7 kg/m2 Ejection Fraction 55%-60% 11/17/15 11/06/2015 Height 67 inches 5'7" Weight 204.75 lb Heart Rate 78 /min BP Systolic Sitting 156 mmHg LA, reg BP Diastolic Sitting 74 mmHg LA, reg BMI (Body Mass Index) 32.1 kg/m2 Results Test Date Test Result H/L Range Note Inr/Protime 09/25/2016 Inr 1.89 High 0.89-1.11 1 1 CALL RESULTS TO EXT:[id number] Procedures Date CPT Code Description Status 12/30/2017 26997 ECHO Transthoracic, Real-Time 2D With Doppler And Color Completed Flow 12/30/2017 73524 ECHO Transthoracic, Real-Time 2D With Doppler And Color Completed Flow 12/26/2017 96328 EKG Tracing & Interpretation Completed 03/31/2017 98336 EKG Tracing & Interpretation Completed 12/04/2016 49995 Color Flow Doppler/Interp & Reprt Completed 12/04/2016 46077 Pulse Wave/Continuous-Interp.RPT Completed 12/04/2016 28507 Echocardiography, Transesophageal, Real Time W/Image 2D Completed W/W/O M-M 12/04/2016 70609 EKG, Interpretation Only Completed 12/04/2016 39089 Cardioversion Completed 09/30/2016 20561 EKG Tracing & Interpretation Completed 09/25/2016 37418 Color Flow Doppler/Interp & Reprt Completed 09/25/2016 28693 Pulse Wave/Continuous-Interp.RPT Completed 09/25/2016 56513 Echocardiography, Transesophageal, Real Time W/Image 2D Completed W/W/O M-M 09/02/2016 70431 EKG Tracing & Interpretation Completed 08/19/2016 19028 ECHO Transthoracic, Real-Time 2D With Doppler And Color Completed Flow 07/30/2016 85190 Holter Monitor Review (24 hr)dr review & interp only Completed 07/30/2016 52272 Holter Monitor Review (24 hr)dr review & interp only Completed 07/30/2016 79204 ECG Monitor/Recording W/Visual Superimposition Scanning Completed 07/29/2016 10651 ECG Monitor/Recording W/Visual Superimposition Scanning Completed 07/15/2016 11496 EKG Tracing & Interpretation Completed 06/06/2016 25632 ECHO Transthorasic Realtime 2D W Doppler & Color Flow Completed Hosp 06/06/2016 91402 EKG, Interpretation Only Completed 11/30/2015 48922 Holter Monitoring 24 HR New Completed 11/27/2015 69820 Holter Monitoring 24 HR New Completed 11/17/2015 78119 ECHO Transthoracic, Real-Time 2D With Doppler And Color Completed Flow 11/06/2015 36293 EKG Tracing & Interpretation Completed Encounters Type Date Location Provider CPT E/M Dx Office Visit 01/30/2018 [facility] ,pc David Fuentes 53146 I48.91 10:14a Hospitalists MD Huseyin N30.00 K74.60 E61.1 Office Visit 01/29/2018 10:13a [facility] David Fuentes 93024 I48.91 Assoc, Hospitalists MD Huseyin K74.60 E61.1 N30.00 Office Visit [facility]2018 [facility] 90506 K74.60 Hospitalists Jonelle I10 L03.115 I85.00 Office Visit 01/27/2018 10:09a [facility] Homero [place], 49575 K74.60 Assoc, Hospitalists N.P. I10 L03.115 I85.00 Office Visit 12/26/2017 10:00a [facility] Franciscotadavidson Sandra, 03562 I48.91 MEllieDEllie I10 I34.0 I36.1 R06.02 R94.31 Office Visit 03/31/2017 2:40p [facility] S. 62056 I48.91 Connie Sandra M.D. I10 I42.9 I34.0 I36.1 R94.31 Office Visit 11/04/2016 1:30p [facility] SACHIN Juarez 85278 I48.91 I10 R60.9 Office Visit 09/30/2016 3:30p [facility] SACHIN Juarez 41967 I48.91 I10 R60.9 Office Visit 09/02/2016 2:30p [facility] SACHIN Juarez 20924 I48.91 I10 Office Visit 07/15/2016 4:00p [facility] Franciscotaybeh SEllie Sandra, 92958 I48.91 M.DEllie I10 I31.9 I31.4 R94.31 Office Visit 06/06/2016 12:26p [facility] Delfina Luis Fleipe, 10612 I48.91 Assoc,pc Hospitalists Jonelle I50.42 I10 Z86.711 Office Visit 06/06/2016 2:33p [facility] Dwain SEllie Wells, 89108 I31.9 [facility] I31.4 I48.91 I50.21 Office Visit 06/05/2016 12:25p [facility] [place], [address] I48.91 Assoc,pc Hospitalists Jonelle I50.42 I10 Z86.711 Office Visit 12/26/2015 3:40p [facility] Qutaybdavidson S. Boaz, 23374 I48.91 M.D. I42.9 I10 I26.99 Office Visit 11/06/2015 9:00a [facility] Qutaybdavidson S. Cathiydcuong, 53330 I42.9 M.D. I48.91 R06.02 I10 R60.9 I26.99 Office Visit 09/04/2015 12:33p [facility] Troy Burgess, 82371 T83.51xA Assoc, Hospitalists Jonelle T14.8 I26.99 Office Visit 09/03/2015 12:32p [facility] Troy Burgess, 66726 T83.51xA Assoc, Hospitalists Jonelle T14.8 I26.99 Office Visit 09/02/2015 12:31p [facility] Troy Burgess, 66499 T83.51xA Assoc, Hospitalists Jonelle I26.99 T14.8 Office Visit 09/01/2015 12:30p [facility] Dez Cuba M.D. 43889 T83.51xA Assoc, Hospitalists T14.8 I26.99 Plan of Care 03/05/2018 - Isidoro Roberts MD, FACSK74.60 Unspecified cirrhosis of miqmbJ99.8 Other ascitesComments:Plan for removal of fluid from the abdomen (paracentesis)
== END | disposition home or self-care (01) ==
LOC: ED 11:16
DX: R10.9 Unspecified abdominal pain (principal); Z53.21 Procedure and treatment not carried out due to patient leaving prior to being seen by health care provider